=== PATIENT | female | born 1960 | race Caucasian/White ===

== ENCOUNTER 2020-02-06 16:54 | Emergency (ER) | payer MEDICAID, SELFPAY ==
[2020-02-06 16:55] VITALS: BP 129/79; PULSE 85; RESP 17; TEMP 36.8; O2SAT 100; BMI 43.4
--- NOTE | 2020-02-06 16:59 | CT_ITS ---
PROCEDURE: CT ABDOMEN PELVIS WO CON CLINICAL INDICATION: right flank pain COMPARISON: No exams were available for comparison TECHNIQUE: Axial images obtained with sagittal and coronal reformats. All CT scans at the facility use one or more dose reduction, viz: automated exposure control, ma/kV adjustment per patient size (including targeted exams where dose is matched to indication, i.e. head), or iterative reconstruction technique. FINDINGS: LOWER THORAX: No acute finding ABDOMEN & PELVIS: Small hiatal hernia. There has been a prior cholecystectomy. The liver, spleen, adrenal glands, pancreas, and kidneys have an unremarkable appearance. No renal or ureteral calculi. No intestinal obstruction or free air. There is a small umbilical hernia which contains fat. No evidence of appendicitis. The cecum is midline with the appendix slightly toward the left. No evidence of diverticulitis. There are post hysterectomy changes. Scattered small nodes are present in the mesenteries. There is under distention of the urinary bladder. The bladder wall slightly thickened which may be due to the underdistention. There is mild wedging involving L3 which is age indeterminate with mild retropulsion of the posterior inferior aspect of L3. There is loss of the height of L3 of approximately 40 percent. IMPRESSION: 1. No acute abdominal or pelvic findings. 2. Wedge compression fracture of L3 age indeterminate. MRI may further evaluate if clinically desired Dictated by: Louie Riley MD 02/06/2020 19:51 Louie Riley MD in [place] 02/06/2020 19:51
[2020-02-06 17:16] LABS: Microscopic, Urine URINE MICROSCOPIC (MICROSCOPIC)
[2020-02-06 17:22] LABS: Chloride 103 mmol/L (98-107); Potassium 3.9 mmoL/L (3.5-5.1); Sodium 142 mmol/L (136-145)
[2020-02-06 17:24] LABS: Amylase 133 U/L (30-110)
[2020-02-06 17:25] LABS: Alanine Aminotransferase 16 U/L (12-78); Albumin Level 4.3 g/dl (3.5-5.0); Albumin/Globulin Ratio 1.2 (1.1-1.8); Alkaline Phosphatase 66 U/L (38-126); Anion Gap 14.9 mEq/L (5-15); Appearance,Urine CLEAR (Clear); Aspartate Amino Transferase 28 U/L (14-36); Bilirubin,Total 0.5 mg/dl (0.2-1.3); Bilirubin,Urine Negative (Negative); Blood Urea Nitrogen 18 mg/dl (7-17); Blood, Urine TRACE-I (Negative); Calcium 8.7 mg/dl (8.4-10.2); Carbon Dioxide 28 mmol/L (22.0-30.0); Color,Urine YELLOW (Yellow); Creatinine Clearance Estimated 47 mL/min (50-200); Estimated Glomerular Filt Rate 57 ml/min (>60); GFR (African American) 69 ML/MIN (>60); Globulin 3.6 g/dL (1.3-3.2); Glucose 100 mg/dl (74-100); Glucose,Urine (UA) Negative (Negative); Ketones,Urine Negative (Negative); Leukocyte Esterase,Urine Negative (Negative); Lipase 142 U/L (23-300); Nitrate,Urine Negative (Negative); PH,Urine 5.5 (5.0-8.5); Protein,Urine Negative (Negative); Total Protein,Serum 7.9 g/dl (6.3-8.2); Urobilinogen,Urine 0.2 EU/dl (0.2)
[2020-02-06 17:26] LABS: Basophils # 0.1 K/mm3 (0-0.2); Basophils % 0.8 % (0.1-2.0); Eosinophils # 0.5 K/mm3 (0.0-0.4); Eosinophils % 4.6 % (0.1-12.0); Hematocrit 38.6 % (37.0-47.0); Hemoglobin 12.8 g/dL (12.2-16.2); Lymphocytes # 3.7 K/mm3 (0.7-4.5); Lymphocytes % 35.5 % (10-50); Mean Corpuscular HGB Conc 33.1 g/dL (31.8-35.4); Mean Corpuscular Hemoglobin 32.3 pg (27.0-31.2); Mean Corpuscular Volume 97.4 fl (81-99); Mean Platelet Volume 8.7 fl (7.4-10.4); Monocytes # 0.5 K/mm3 (0.1-1.0); Monocytes % 4.6 % (1.7-9.3); Neutrophils # 5.6 K/mm3 (1.8-7.8); Neutrophils % 54.5 % (37.0-80.0); Platelet Count 203 K/mm3 (142-424); Red Blood Count 3.96 M/mm3 (4.20-5.40); White Blood Count 10.3 K/mm3 (4.8-10.8)
[2020-02-06 17:39] LABS: RBC,Urine Occasional #/hpf (0-3); Squamous Epithelial Cell,Urine Occasional #/hpf (0-5)
--- NOTE | 2020-02-06 18:28 | HMH.EDGENADL ---
ED Disposition Clinical Impression: Right flank pain Vomiting Qualifiers: Vomiting type: unspecified Vomiting Intractability: non-intractable Nausea presence: with nausea Qualified Code(s): R11.2 - Nausea with vomiting, unspecified Disposition: Home, Self-Care Condition on Discharge: Good Instructions: DI for Flank Pain Additional Instructions: Ibuprofen, [id number], for pain. Zofran as needed for vomiting. You are being provided with a list of physicians available for follow-up of your condition. Please call a physician on this list to arrange a follow-up appointment as soon as possible. Prescriptions: Ondansetron [Zofran 4mg ODT] 4 mg PO TIDP PRN #10 tab.rapdis PRN Reason: Nausea And Vomiting Transmission Status: Received by [id number] Referrals: PCP,No [Primary Care Provider] - - Critical Care Critical Care Time: No Attestation: On 02/06/20, the high probability of a clinically significant, sudden or life threatening deterioration of the following system(s) required my full and direct attention, intervention and personal management. The time I documented below is in addition to time spent performing reported procedures but includes the following listed in this critical care notation. Medical Decision Making - Jeffery Inquiry Pt receiving controlled substance: No Vital Signs: 02/06/20 16:55 02/06/20 19:20 Temperature 98.2 F 98.6 F Temperature Source Oral Oral Pulse Rate 73 Pulse Rate [Right Radial] 85 Respiratory Rate 17 18 Blood Pressure 116/76 Blood Pressure [Right Arm] 129/79 Blood Pressure Mean [Right Arm] 95 Blood Pressure Source Automatic Cuff Blood Pressure Position Sitting 02 Sat by Pulse Oximetry 100 Oxygen Delivery Method Room Air - Lab Data Lab results reviewed: Yes: I reviewed the patient's lab results. Lab Results 02/06/20 17:10: Urine Color Yellow, Urine Appearance Clear, Urine pH 5.5, Ur Specific [place] 1.010, Urine Protein Negative, Urine Glucose (UA) Negative, Urine Ketones Negative, Urine Blood Trace-i, Urine Nitrate Negative, Urine Bilirubin Negative, Urine Urobilinogen 0.2, Ur Leukocyte Esterase Negative, Urine RBC Occasional, Urine WBC None, Ur Squamous Epith Cells Occasional, Urine Bacteria None 02/06/20 17:10: WBC 10.3, RBC 3.96 L, Hgb 12.8, Hct 38.6, MCV 97.4, MCH 32.3 H, MCHC 33.1, RDW 14.0, Plt Count 203, MPV 8.7, Neut % (Auto) 54.5, Lymph % (Auto) 35.5, [place] % (Auto) 4.6, Eos % (Auto) 4.6, Baso % (Auto) 0.8, Neut # (Auto) 5.6, Lymph # (Auto) 3.7, [place] # (Auto) 0.5, Eos # (Auto) 0.5 H, Baso # (Auto) 0.1 02/06/20 17:10: Sodium 142, Potassium 3.9, Chloride 103, Carbon Dioxide 28, Anion Gap 14.9, BUN 18 H, Creatinine 1.00, Estimated Creat Clear 47, Estimated GFR 57 L, Est GFR ( Amer) 69, Glucose 100, Calcium 8.7, Total Bilirubin 0.5, AST 28, ALT 16, Alkaline Phosphatase 66, Total Protein 7.9, Albumin 4.3, Globulin 3.6 H, Albumin/Globulin Ratio 1.2, Amylase 133 H, Lipase 142 Result diagrams: 02/06/20 17:10 02/06/20 17:10 Orders (Tests/Meds): ED MEDICATIONS Discontinued Medications Generic Name Dose Route Start Last Admin Trade Name Jordy PRN Reason Stop Dose Admin Sodium Chloride 1,000 mls @ 999 mls/hr 02/06/20 17:00 02/06/20 17:01 Sod Chlor 0.9% 1000ml Bag IV 02/06/20 18:00 999 mls/hr .Q1H1M CHIRAG Administration Ketorolac Tromethamine 30 mg 02/06/20 16:59 02/06/20 17:01 Toradol 30mg/Ml Vial IV 02/06/20 17:00 30 mg ONCE ONE Administration Ondansetron HCl 4 mg 02/06/20 16:59 02/06/20 17:01 Zofran 4mg/2ml Vial IV 02/06/20 17:00 4 mg ONCE ONE Administration ORDERS Category Date Time Status CT abdomen pelvis wo con Stat Cat Scan 02/06/20 16:59 Taken - CT Data CT Scan: Abdomen, Pelvis Time Received: 18:28 ([facility] fax) ED CT Reviewed: Yes: I have viewed the radiologist's interpretation Findings Narrative: No calcified renal or ureteral stone. No hydronephrosis. Bladder wall thi
[2020-02-06 19:20] VITALS: BP 116/76; PULSE 73; RESP 18; TEMP 37; O2SAT 96
== END 2020-02-06 19:20 | disposition home or self-care (01) ==
PROVIDERS: Emergency Provider Emergency Medicine
DX: R11.2 Nausea with vomiting, unspecified (principal); R10.31 Right lower quadrant pain
CPT/HCPCS: 74176; 80053; 81001; 82150; 83690; 85025; 96365; 96374; 96375; 99283; J2405

== ENCOUNTER 2020-12-11 15:07 | Emergency (ER) | payer MEDICAID, SELFPAY ==
[2020-12-11 15:02] VITALS: BP 133/76; PULSE 80; RESP 16; TEMP 37.1; O2SAT 95; BMI 53.1
[2020-12-11 15:35] LABS: Microscopic, Urine URINE MICROSCOPIC (MICROSCOPIC)
[2020-12-11 15:38] LABS: Appearance,Urine CLOUDY (Clear); Blood, Urine Negative (Negative); Color,Urine YELLOW (Yellow); Glucose,Urine (UA) TRACE (Negative); Ketones,Urine TRACE (Negative); Leukocyte Esterase,Urine TRACE (Negative); Nitrate,Urine Negative (Negative); Protein,Urine TRACE (Negative); Specific Gravity, Urine >= 1.030 (1.005-1.030)
[2020-12-11 15:53] LABS: Bilirubin,Urine 1+ (Negative)
--- NOTE | 2020-12-11 16:08 | HMH.EDGENADL ---
ED Disposition Clinical Impression: Upper abdominal pain, Right flank pain, Urinary frequency, Dysuria Disposition: Home, Self-Care Condition on Discharge: Good Instructions: DI for Dysuria -- Adult, DI for Flank Pain, DI for Abdominal Pain-Adult Additional Instructions: Tylenol or ibuprofen for pain. Follow-up your urine culture results from your primary care provider within 2 to 3 days. Additional instructions for ABDOMINAL PAIN: See your physician as soon as possible for further evaluation. Return immediately if worsening abdominal pain, vomiting, shortness of breath, fever, vomiting of blood or abdominal distention. Referrals: Provider,Referral, [Primary Care Provider] - - Critical Care Critical Care Time: No Attestation: On 12/11/20, the high probability of a clinically significant, sudden or life threatening deterioration of the following system(s) required my full and direct attention, intervention and personal management. The time I documented below is in addition to time spent performing reported procedures but includes the following listed in this critical care notation. Medical Decision Making - Medical Records Medical records reviewed: Yes: I reviewed the patient's medical records. MR Comment: Reviewed prior emergency department visit on 02/06/2020, seen by me. Complaint was right flank pain. Had a negative work-up that included urine analysis and CT scan abdomen and pelvis. - Jeffery Inquiry Pt receiving controlled substance: No Vital Signs: 12/11/20 15:02 Temperature 98.8 F Temperature Source Oral Pulse Rate [Right] 80 Respiratory Rate 16 Blood Pressure [Right Arm] 133/76 Blood Pressure Mean [Right Arm] 95 02 Sat by Pulse Oximetry 95 Oxygen Delivery Method Room Air - Lab Data Lab Results 12/11/20 15:00: Urine Color Yellow, Urine Appearance Cloudy, Urine pH 6.0, Ur Specific [place] >= 1.030, Urine Protein Trace, Urine Glucose (UA) Trace, Urine Ketones Trace, Urine Blood Negative, Urine Nitrate Negative, Urine Bilirubin 1+ A, Urine Urobilinogen 4.0, Ur Leukocyte Esterase Trace, Urine RBC None, Urine WBC 3-5, Ur Squamous Epith Cells 3-5, Urine Bacteria None 12/11/20 15:15: WBC 10.3, RBC 4.15 L, Hgb 12.6, Hct 38.1, MCV 91.9, MCH 30.3, MCHC 32.9, RDW 14.3, Plt Count 283, MPV 8.5, Neut % (Auto) 63.1, Lymph % (Auto) 28.4, [place] % (Auto) 3.9, Eos % (Auto) 3.9, Baso % (Auto) 0.6, Neut # (Auto) 6.5, Lymph # (Auto) 2.9, [place] # (Auto) 0.4, Eos # (Auto) 0.4, Baso # (Auto) 0.1 12/11/20 15:15: Sodium 142, Potassium 4.0, Chloride 102, Carbon Dioxide 31 H, Anion Gap 13.0, BUN 13, Creatinine 1.00, Estimated Creat Clear 46, Estimated GFR 57 L, Est GFR ( Amer) 69, Glucose 98, Calcium 8.7, Total Bilirubin 0.7, AST 27, ALT 13, Alkaline Phosphatase 77, Total Protein 7.9, Albumin 4.4, Globulin 3.5 H, Albumin/Globulin Ratio 1.3, Lipase 70 Result diagrams: 12/11/20 15:15 12/11/20 15:15 Orders (Tests/Meds): ED MEDICATIONS Discontinued Medications Generic Name Dose Route Start Last Admin Trade Name Freq PRN Reason Stop Dose Admin Ketorolac Tromethamine 30 mg 12/11/20 16:22 12/11/20 16:31 Ketorolac 30mg/Ml Vial IV 12/11/20 16:23 30 mg ONCE ONE Administration ORDERS Category Date Time Status Urine Culture Stat Micro 12/11/20 16:59 Ordered - CT Data CT Scan: Abdomen, Pelvis Time Received: 16:[address] Reviewed: Yes: I have viewed the radiologist's interpretation Findings Narrative: PROCEDURE INFORMATION: Exam: CT Abdomen And Pelvis Without Contrast Exam date and time: 12/11/2020 4:14 PM Age: 60 years old Clinical indication: Abdominal pain; Flank; Right; Prior surgery; Additional info: Flank pain, urinary trouble TECHNIQUE: Imaging protocol: Computed tomography of the abdomen and pelvis without contrast. Radiation optimization: All CT scans at this facility use at least one of these dose optimization techniques: automated exposure control; mA and/o
--- NOTE | 2020-12-11 16:14 | CT_ITS ---
PROCEDURE INFORMATION: Exam: CT Abdomen And Pelvis Without Contrast Exam date and time: 12/11/2020 4:14 PM Age: 60 years old Clinical indication: Abdominal pain; Flank; Right; Prior surgery; Additional info: Flank pain, urinary trouble TECHNIQUE: Imaging protocol: Computed tomography of the abdomen and pelvis without contrast. Radiation optimization: All CT scans at this facility use at least one of these dose optimization techniques: automated exposure control; mA and/or kV adjustment per patient size (includes targeted exams where dose is matched to clinical indication); or iterative reconstruction. COMPARISON: CT ABDOMEN PELVIS WO CON 02/06/2020 5:19 PM FINDINGS: Mediastinal space: A moderate hiatal hernia is present. Liver: Normal. No mass. Gallbladder and bile ducts: There has been a cholecystectomy. Pancreas: Normal. No ductal dilation. Spleen: Normal. No splenomegaly. Adrenal glands: Normal. No mass. Kidneys and ureters: No renal calcifications or obstructive uropathy. Stomach and bowel: Unremarkable. No obstruction. No mucosal thickening. Appendix: No evidence of appendicitis. Intraperitoneal space: Normal. No significant fluid collection. Vasculature: The vasculature demonstrates diffuse mild atherosclerotic calcification. Lymph nodes: Unremarkable. No enlarged lymph nodes. Urinary bladder: Unremarkable as visualized. Bones/joints: Compression deformity of L3 is present, age is indeterminate. The lumbar spine demonstrates moderate degenerative changes at multiple levels. Soft tissues: Soft tissues are normal. IMPRESSION: 1. No renal calcifications or obstructive uropathy. 2. A moderate hiatal hernia is present. 3. Compression deformity of L3 is present, age is indeterminate.
--- NOTE | 2020-12-11 16:20 | PC.NURSE ---
Pt to CT scanner at this time.
[2020-12-11 16:22] LABS: Basophils # 0.1 K/mm3 (0-0.2); Basophils % 0.6 % (0.1-2.0); Eosinophils # 0.4 K/mm3 (0.0-0.4); Eosinophils % 3.9 % (0.1-12.0); Hematocrit 38.1 % (37.0-47.0); Hemoglobin 12.6 g/dL (12.2-16.2); Lymphocytes # 2.9 K/mm3 (0.7-4.5); Lymphocytes % 28.4 % (10-50); Mean Corpuscular HGB Conc 32.9 g/dL (31.8-35.4); Mean Corpuscular Hemoglobin 30.3 pg (27.0-31.2); Mean Corpuscular Volume 91.9 fl (81-99); Mean Platelet Volume 8.5 fl (7.4-10.4); Monocytes # 0.4 K/mm3 (0.1-1.0); Monocytes % 3.9 % (1.7-9.3); Neutrophils # 6.5 K/mm3 (1.8-7.8); Neutrophils % 63.1 % (37.0-80.0); Platelet Count 283 K/mm3 (142-424); Red Blood Count 4.15 M/mm3 (4.20-5.40); Red Cell Distribution Width 14.3 % (11.5-17.5); White Blood Count 10.3 K/mm3 (4.8-10.8)
[2020-12-11 16:24] LABS: Alanine Aminotransferase 13 U/L (12-78); Albumin Level 4.4 g/dl (3.5-5.0); Albumin/Globulin Ratio 1.3 (1.1-1.8); Alkaline Phosphatase 77 U/L (38-126); Aspartate Amino Transferase 27 U/L (14-36); Bilirubin,Total 0.7 mg/dl (0.2-1.3); Blood Urea Nitrogen 13 mg/dl (7-17); Calcium 8.7 mg/dl (8.4-10.2); Carbon Dioxide 31 mmol/L (22.0-30.0); Chloride 102 mmol/L (98-107); Creatinine Clearance Estimated 46 mL/min (50-200); Estimated Glomerular Filt Rate 57 ml/min (>60); GFR (African American) 69 ML/MIN (>60); Globulin 3.5 g/dL (1.3-3.2); Glucose 98 mg/dl (74-100); Lipase 70 U/L (23-300); Sodium 142 mmol/L (136-145); Total Protein,Serum 7.9 g/dl (6.3-8.2)
[2020-12-11 16:33] VITALS: PULSE 70; O2SAT 93
[2020-12-11 16:34] VITALS: BP 139/60; PULSE 57; O2SAT 94
[2020-12-11 16:45] VITALS: PULSE 77; O2SAT 92
[2020-12-11 17:00] VITALS: BP 127/103; PULSE 66; O2SAT 92
[2020-12-11 17:36] VITALS: BP 145/67; PULSE 77; RESP 19; TEMP 37.1; O2SAT 94
== END 2020-12-11 17:50 | disposition home or self-care (01) ==
PROVIDERS: Emergency Provider Emergency Medicine
DX: R30.0 Dysuria (principal); R35.0 Frequency of micturition
CPT/HCPCS: 74176; 80053; 81001; 83690; 85025; 87086; 96374; 99283

== ENCOUNTER 2021-01-03 16:50 | Emergency (ER) | payer MEDICAID, SELFPAY ==
[2021-01-03 16:50] VITALS: BP 138/78; RESP 18; TEMP 37.5; O2SAT 93; BMI 43.2
--- NOTE | 2021-01-03 17:16 | HMH.EDANIB ---
ED Disposition Clinical Impression: Insect bite Disposition: Home, Self-Care Condition on Discharge: Good Additional Instructions: Return the emergency department for fever leg swelling or any other concerns within the next 8 hours otherwise follow-up with your primary care physician within the next few days Prescriptions: Ibuprofen [Ibuprofen 400mg Tablet] 400 mg PO Q8HP PRN 5 Days #15 tab PRN Reason: Mild Pain Transmission Status: Pending to [id number] hydrOXYzine pamoate [Vistaril 25mg capsule] 25 mg PO Q8H PRN 5 Days #15 cap PRN Reason: Itching Transmission Status: Pending to [id number] - Critical Care Critical Care Time: No Attestation: On , the high probability of a clinically significant, sudden or life threatening deterioration of the following system(s) required my full and direct attention, intervention and personal management. The time I documented below is in addition to time spent performing reported procedures but includes the following listed in this critical care notation. Medical Decision Making - Medical Records Medical records reviewed: Yes: I reviewed the patient's medical records. - Jeffery Inquiry Pt receiving controlled substance: No Vital Signs: 01/03/21 16:50 Temperature 99.5 F Temperature Source Oral Respiratory Rate 18 Blood Pressure [Right Arm] 138/78 Blood Pressure Mean [Right Arm] 98 Blood Pressure Source [Right Arm] Automatic Cuff 02 Sat by Pulse Oximetry 93 L Oxygen Delivery Method Room Air Medical Decision Narrative: 60-year-old female presents with insect bite to upper leg. There is no evidence of abscess cellulitis necrotizing infection sepsis or any other concerns on history or exam. Though lesion not identified plan to prescribe Vistaril and ibuprofen for pain and itching and discharged home with return precautions Animal Bite HPI - General Chief Complaint: Animal Bite Stated Complaint: spider bite Time Seen by Provider: 01/03/21 16:55 Mode of Arrival: EMS Limitations: No Limitations Description of Symptoms (Recalled from ER Triage Doc. by RN): patient was taking a bath last night and states that she was bit by a spider on posterior aspect of right knee. patient states that the spider resembled a black . patient was worried this afternoon, due to knee pain and wanted to be seen. - History of Present Illness HPI narrative: 60-year-old female presents with insect bite. She says that yesterday she had itching to her posterior right upper leg and her son noticed a black lesion on this leg. She denies any redness warmth or swelling to this area. No fever or chills. No nausea or vomiting. She now cannot find the area that she was concerned about. - Related Data Previous Rx's Medication Instructions Recorded Ondansetron [Zofran 4mg ODT] 4 mg PO TIDP PRN #10 tab.rapdis 02/06/20 Ibuprofen [Ibuprofen 400mg 400 mg PO Q8HP PRN 5 Days #15 tab 01/03/21 Tablet] hydrOXYzine pamoate [Vistaril 25mg 25 mg PO Q8H PRN 5 Days #15 cap 01/03/21 capsule] Allergies Allergy/AdvReac Type Severity Reaction Status Date / Time codeine Allergy Verified 12/11/20 16:11 [facility] History - Hepatitis A Screen Drug use history?: No High risk sexual behaviors?: No History of sexually transmitted infection?: No Currently employed?: No Childcare worker?: No Do you have indoor plumbing?: Yes Do you have electricity?: Yes Attestation statement:: This patient has been screened for Hepatitis A risk factors. Medical History: Denies:: Diabetes Mellitus Type 1, Diabetes Mellitus Type 2 Comment: hysterectomy - Social History Alcohol Intake: never Occupational Status: disabled ROS Obtained: Yes All systems reviewed & no additional complaints - Constitutional Constitutional: Denies body ache, Denies fever(s) - Eyes Eyes: Denies blurry vision - ENT Ears, Nose, Mouth, and Throat: Denies dizziness - Cardiovascular Cardio
--- NOTE | 2021-01-03 17:25 | PC.NURSE ---
Called son, Donald, to advise that pt is being d/c'd and ready for pickup. He stated he will be heading this way.
[2021-01-03 17:36] VITALS: BP 128/79; PULSE 72; RESP 16; TEMP 37.1; O2SAT 98
== END 2021-01-03 17:38 | disposition home or self-care (01) ==
PROVIDERS: Emergency Provider Emergency Medicine
DX: S80.261A Insect bite (nonvenomous), right knee, initial encounter (principal); W57.XXXA Bitten or stung by nonvenomous insect and other nonvenomous arthropods, initial encounter
CPT/HCPCS: 99281

== ENCOUNTER 2021-11-25 15:43 | Emergency (ER) | payer MEDICAID, SELFPAY ==
[2021-11-25 15:42] VITALS: BP 115/66; PULSE 104; RESP 18; TEMP 37.7; O2SAT 95; BMI 37.8
--- NOTE | 2021-11-25 15:44 | HMH.EDLOEX ---
ED Disposition Clinical Impression: Contusion of foot, right Qualifiers: Encounter type: initial encounter Qualified Code(s): S90.31XA - Contusion of right foot, initial encounter Disposition: Home, Self-Care Condition on Discharge: Fair Instructions: Contusion, DI for Contusion Additional Instructions: Mrwz-[id number]-[id number] ibuprofen and/or Tylenol for your pain. Follow-up with your primary care doctor in about 3 to 4 days if you do not feel any better. Return to the emergency department if you feel worse in any way. - Critical Care Critical Care Time: No Attestation: On , the high probability of a clinically significant, sudden or life threatening deterioration of the following system(s) required my full and direct attention, intervention and personal management. The time I documented below is in addition to time spent performing reported procedures but includes the following listed in this critical care notation. Medical Decision Making - Jeffery Inquiry Pt receiving controlled substance: No Vital Signs: 11/25/21 15:42 Temperature 99.9 F H Temperature Source Oral Pulse Rate [Brachial] 104 H Respiratory Rate 18 Blood Pressure [Left Arm] 115/66 Blood Pressure Mean [Left Arm] 82 02 Sat by Pulse Oximetry 95 Oxygen Delivery Method Room Air Orders (Tests/Meds): ORDERS Category Date Time Status Foot XR right minimum 3 views [XR foot RT min 3V] Stat Exams 11/25/21 15:46 Taken - Radiology Data #1 Image(s): Foot/Toes Image Reviewed: Yes I reviewed the patient's radiology image Preliminary Findings: Normal/NAD Lower Extremity Injury HPI - General Stated Complaint: FOOT PAIN Time Seen by Provider: 11/25/21 15:44 Source of Information: EMS - History of Present Illness HPI Narrative: The patient presents to the emergency department by EMS complaining of a right foot injury that happened a few days ago. She states that she tripped over a towel and hurt the top of her medial right foot. Denies any other complaints. - Related Data Previous Rx's Medication Instructions Recorded Ondansetron [Zofran 4mg ODT] 4 mg PO TIDP PRN #10 tab.rapdis 02/06/20 Ibuprofen [Ibuprofen 400mg 400 mg PO Q8HP PRN 5 Days #15 tab 01/03/21 Tablet] hydrOXYzine pamoate [Vistaril 25mg 25 mg PO Q8H PRN 5 Days #15 cap 01/03/21 capsule] Allergies Allergy/AdvReac Type Severity Reaction Status Date / Time codeine Allergy Verified 12/11/20 16:11 [facility] History - Hepatitis A Screen Attestation statement:: This patient has been screened for Hepatitis A risk factors. I have reviewed the patient's past medical history: No Medical History: Denies:: Diabetes Mellitus Type 1, Diabetes Mellitus Type 2 Comment: hysterectomy - Social History Alcohol Intake: never Occupational Status: disabled ROS Obtained: Yes All systems reviewed & no additional complaints Physical Exam - General General appearance: alert, in no apparent distress - Head Head exam: atraumatic, normocephalic, normal inspection - Eye Eye exam: Present: normal appearance, PERRL, EOMI - ENT ENT exam: Present: normal exam, normal oropharynx, mucous membranes moist, normal external ear exam - Neck Neck exam: Present: normal inspection, full ROM, trachea midline. Absent: meningismus, lymphadenopathy - Chest Chest inspection: Present: normal inspection, symmetric chest wall rise. Absent: tenderness - Respiratory Respiratory exam: Present: normal lung sounds bilaterally. Absent: respiratory distress - Cardiovascular Cardiovascular exam: Present: regular rate, normal rhythm. Absent: JVD - Abdominal Exam Abdominal exam: Present: soft, normal bowel sounds. Absent: distention, tenderness, guarding - Extremities Exam Extremities exam: Present: normal inspection, full ROM, tenderness, normal capillary refill, other (There is tenderness to the dorsum of the medial right foot. There is no erythema. There is no ecchymosi
--- NOTE | 2021-11-25 15:45 | PC.NURSE ---
EMS REPORTS BED BUG NOTED TO PT PRIOR TO ARRIVAL. CLOTHES REMOVED, PLACED IN LINEN BAG. PT IN HOSPITAL GOWN
--- NOTE | 2021-11-25 15:46 | XR_ITS ---
FINAL REPORT CLINICAL HISTORY: injury, pt states she fell 2-3 days ago, and that the majority of the pain is on the lateral medial aspect of her foot near the 1st digit. FINDINGS: RIGHT FOOT Three views were obtained. There is no acute fracture or dislocation. There are mild degenerative changes. Calcaneal spurs are identified. Note is made of mild hallux valgus deformity. No soft tissue abnormality is identified. IMPRESSION: Degenerative changes with no acute process. Reviewed, Interpreted and Dictated by Nemesio Mahajan III, MD Transcribed by Althea Mckeon Authenticated and . [facility]
--- NOTE | 2021-11-25 16:05 | PC.NURSE ---
1605 PT TO XR
--- NOTE | 2021-11-25 16:10 | PC.NURSE ---
PT RETURNED FROM XR
--- NOTE | 2021-11-25 16:38 | PC.NURSE ---
UPDATING PT ON XR RESULTS
--- NOTE | 2021-11-25 16:51 | PC.NURSE ---
Pt attempted to call son for a ride home. Stated that he did not answer. Pt is going to try to call him again in a few minutes.
--- NOTE | 2021-11-25 17:03 | PC.NURSE ---
Daughter margarita called to state that she is on her way to clam picker pt.
[2021-11-25 17:36] VITALS: BP 105/51; PULSE 97; RESP 18; TEMP 36.7; O2SAT 99
== END 2021-11-25 17:38 | disposition home or self-care (01) ==
PROVIDERS: Emergency Provider Emergency Medicine
DX: S90.31XA Contusion of right foot, initial encounter (principal); W22.8XXA Striking against or struck by other objects, initial encounter; Z88.6 Allergy status to analgesic agent
CPT/HCPCS: 73630; 99283

== ENCOUNTER 2025-04-08 08:16 | Emergency (ER) | payer MEDICAID, SELFPAY ==
[2025-04-08] VITALS (7 sets, daily range): BP systolic 116–160; BP diastolic 62–101; PULSE 78–131; RESP 16; TEMP 36.6–36.9; O2SAT 94–97; BMI 43.2
--- NOTE | 2025-04-08 08:13 | CT_ITS ---
PROCEDURE INFORMATION: Exam: CT Abdomen And Pelvis With Contrast Exam date and time: 04/08/2025 9:14 AM Age: 64 years old Clinical indication: Nausea and vomiting; Abdominal pain; Generalized; Additional info: Generalized abdominal pain x1 month, n/v TECHNIQUE: Imaging protocol: Computed tomography of the abdomen and pelvis with contrast. Radiation optimization: All CT scans at this facility use at least one of these dose optimization techniques: automated exposure control; mA and/or kV adjustment per patient size (includes targeted exams where dose is matched to clinical indication); or iterative reconstruction. Contrast material: ISOVUE; Contrast volume: 75 ml; Contrast route: IV; COMPARISON: CT ABDOMEN PELVIS WO CON 12/11/2020 4:22 PM FINDINGS: Diaphragm: Moderate hiatal hernia. Liver: Normal. No mass. Gallbladder and biliary ducts: Normal. No calcified stones. No ductal dilation. Pancreas: Normal. No ductal dilation. Spleen: Normal. No splenomegaly. Adrenal glands: Normal. No mass. Kidneys and ureters: Bilateral renal sinus and parenchymal cysts. No hydronephrosis. Stomach and bowel: Moderate colonic stool burden. No bowel obstruction. Appendix: No evidence of appendicitis. Intraperitoneal space: Unremarkable. No free air. No significant fluid collection. Vasculature: Unremarkable. No abdominal aortic aneurysm. Lymph nodes: Unremarkable. No enlarged lymph nodes. Urinary bladder: Unremarkable as visualized. Reproductive: Hysterectomy. Bones/joints: Dextrocurvature of the lumbar spine. Remote L3 compression fracture. Soft tissues: Unremarkable. IMPRESSION: No acute findings. COMMENTS: Consistent with the [place] [employer]'s Incidental Findings Committee white paper (J Am Chaitanya Radiol 2018): Any incidental renal lesion less than 1 cm or classified as too small to characterize, or any incidental cystic renal lesion characterized as simple-appearing, is likely benign. No follow-up imaging is recommended for these lesions per consensus recommendations based on imaging criteria.
--- NOTE | 2025-04-08 08:13 | XR_ITS ---
PROCEDURE INFORMATION: Exam: XR Chest Exam date and time: 04/08/2025 8:51 AM Age: 64 years old Clinical indication: Shortness of breath TECHNIQUE: Imaging protocol: Radiologic exam of the chest. Views: 1 view. COMPARISON: CT ABDOMEN PELVIS WO CON 12/11/2020 4:22 PM FINDINGS: Lungs: Unremarkable. No consolidation. Pleural spaces: Unremarkable. No pleural effusion. No pneumothorax. Heart/Mediastinum: Unremarkable. No cardiomegaly. Bones/joints: Unremarkable. IMPRESSION: No acute findings.
--- NOTE | 2025-04-08 08:15 | ED_ITS ---
Discharge Plan Disposition Patient Disposition: Home, Self-Care Prescriptions Prescriptions: New sulfamethoxazole-trimethoprim [Bactrim] 400-80 mg tablet 1 tab PO BID 7 Days Qty: 14 0RF No Action ondansetron 4 MG tablet,disintegrating 4 mg PO TIDP PRN (Reason: Nausea And Vomiting) Qty: 10 0RF ibuprofen 400 MG tablet 400 mg PO Q8HP PRN (Reason: Mild Pain) 5 Days Qty: 15 0RF hydroxyzine pamoate 25 MG capsule 25 mg PO Q8H PRN (Reason: Itching) 5 Days Qty: 15 0RF Referrals Follow up/Referrals: Provider,Referral, MD [Primary Care Provider, Medical] - See instructions Activity Restrictions/Add. Instructions Additional Instructions/Restrictions: Your CT scan showed evidence of constipation, which could explain your pain. I encourage you to pickup driver MiraLAX [id number] and take 1 capful daily. If you do not have daily bowel movements, increase it to 2 capfuls daily until you have regular bowel movements. I am also prescribing a course of antibiotics for the area of infection to the back of your neck. Take this as prescribed. I am providing you a list of primary care doctors to follow-up with. Contact them to schedule a follow-up appointment. If you develop any new or worsening symptoms, or if you become concerned for your help for any reason, return to the emergency department for evaluation Clinical Impressions Clinical Impression: Cellulitis of neck, Constipation, Abdominal pain, RL (acute kidney injury) Instructions Patient Instructions: DI for Acute Abdominal Pain Print Language Print Language: German Discharge ED Provider: David Skinner General Adult HPI General Chief complaint: Abdominal Pain Stated complaint: ABD pain Time Seen by Provider: 04/08/25 08:17 Mode of Arrival: EMS Source of Information: Patient Description of Symptoms (Recalled from ER Triage Doc. by RN): Patient complaining of lower abdominal pain that she states has been going on for a month, worse when she moves. Also states any time she tries to eat anything she vomits. History of Present Illness HPI narrative: Althea Villatoro is a 64F with a history of hypothyroidism, cleft palate s/p repair, who presents to the emergency department for complaints of 1 month of abdominal pain. Patient states that intermittently she will have lower abdominal pain that is worsened with movements sometimes. She states that over the last month, when she eats, she often times has vomiting, however it has slowed recently. She denies any diarrhea or constipation or bloody stool. She denies any dysuria, hematuria or changes in urinary frequency. She denies any chest pain but states that intermittently she will have some shortness of breath. She denies any tobacco use. She denies any alcohol or recreational drug use. She denies any fevers. She denies any abdominal surgeries. Related Data Previous Rx's ?Medication ?Instructions ?Recorded ondansetron 4 mg disintegrating 4 mg PO TIDP PRN Nause a And 02/06/20 tablet Vomiting ##10 hydroxyzine pamoate 25 mg capsule 25 mg PO Q8H PRN Itc radha 5 days 01/03/21 #15 caps ibuprofen 400 mg tablet 400 mg PO Q8HP PRN Mild Pain 5 01/03/21 days #15 tabs sulfamethoxazole 400 1 tab PO BID 7 days #14 tabs 04/08/25 mg-trimethoprim 80 mg tablet (Bactrim) Allergies Allergy/AdvReac Type Severity Reaction Status Date / Time codeine Allergy Unknown Verified 04/08/25 08:16 allergy reaction [facility] Disclaimer: The information contained in this section may have been updated after the patient was seen, as this information can be updated by other users. Social History Smoking Status: Never smoker alcohol intake: never current occupational status: disabled Travel in the last 8 weeks?: None Have you lived/traveled outside US in past 30 days?: No Contact w/someone who lives/traveled outside US past 30 days?: No Exposure to someone with infectious disease in past 14 days?: No Do you have a fever (greater than 100.4 F or 38 C)?: No Have you tested positive for COVID-19?: No Exposed to someone with COVID-19 in past 14 days?: No Do you have a sore throat?: No Do you have a cough?: No Do you have any weakness?: No Do you have any diarrhea?: No Are you experiencing any unusual bleeding?: No Do you have any muscle aches/pain?: No Do you have any abdominal pain?: No Are you experiencing loss of taste or smell?: No Other Medical History Have you received the Flu Vaccine for this season: No Have you received the Pneumonia Vaccine: No ROS Obtained: Yes Systems reviewed as appropriate & no additional complaints except as documented Physical Exam General General appearance: alert and in no apparent distress Head Head exam: atraumatic Eye Eye exam: Present normal appearance ENT ENT exam: Present normal external ear exam Neck Neck exam: Present full ROM Chest Chest inspection: Present symmetric chest wall rise Respiratory Respiratory exam: Present normal lung sounds bilaterally; Absent respiratory distress, wheezes or stridor Cardiovascular Cardiovascular exam: Present normal rhythm and tachycardia Abdominal Exam Abdominal exam: Present soft, tenderness (Generalized) and guarding (Grimacing but no guarding throughout the entire abdomen); Absent distention, rebound or rigidity Extremities Exam Extremities exam: Present normal inspection Back Exam Back exam: Present normal inspection Neurological Exam Neurological exam: Present alert and oriented X3 Psychiatric Psychiatric exam: Present normal affect Skin Skin exam: Present warm and dry Medical Decision Making Medical Records Screening: Per USPSTF and CDC recommendations, given the prevalence of disease in our region, it is our hospital?s policy to screen for HIV and viral Hepatitis for all patients aged 18 and over and those with ongoing risk factors. Jeffery Inquiry Pt receiving controlled substance: No Vital Signs: 04/08/25 08:09 04/08/25 08:12 04/08/25 08:30 Temperature 98.5 F Temperature Source Oral Pulse Rate 131 H 108 H Pulse Rate [Right Brachial] 121 H Respiratory Rate 16 Blood Pressure 160/101 H Blood Pressure [Right Arm] 160/101 H Blood Pressure Mean [Right Arm] 120 Blood Pressure Source [Right Arm] Automatic Cuff Blood Pressure Position [Right Arm] Sitting 02 Sat by Pulse Oximetry 95 96 95 Oxygen Delivery Method Room Air Room Air Room Air 04/08/25 09:01 04/08/25 09:31 04/08/25 09:46 Temperature Temperature Source Pulse Rate 91 H 85 82 Pulse Rate [Right Brachial] Respiratory Rate Blood Pressure 135/75 127/63 129/62 Blood Pressure [Right Arm] Blood Pressure Mean [Right Arm] Blood Pressure Source [Right Arm] Blood Pressure Position [Right Arm] 02 Sat by Pulse Oximetry 94 L 95 97 Oxygen Delivery Method Room Air Room Air Room Air Lab Data Lab Results 04/08/25 08:13: WBC 16.8 H, RBC 4.20, Hgb 13.0, Hct 40.7, MCV 96.9, MCH 31.0, MCHC 31.9, RDW 12.9, Plt Count 300, MPV 11.2 H, Neut % (Auto) 55.2, Lymph % (Auto) 37.0, [place] % (Auto) 4.4, Eos % (Auto) 2.5, Baso % (Auto) 0.5, Neut # (Auto) 9.3 H, Lymph # (Auto) 6.2 H, [place] # (Auto) 0.7, Eos # (Auto) 0.4, Baso # (Auto) 0.1, Total Counted 100, Neutrophils % (Manual) 50, Lymphocytes % (Manual) 44, Monocytes % (Manual) 3, Eosinophils % (Manual) 2, Basophils % (Manual) 1.0, Platelet Estimate Normal, RBC Morphology Normal, Sodium 141, Potassium 3.8, Chloride 103, Carbon Dioxide 26, Anion Gap 15.8 H, BUN 19 H, Creatinine 1.10 H, Estimated Creat Clear 32, Estimated GFR 50 L, Est GFR ( Amer) 61, Glucose 123 H, Lactate 1.8, Calcium 9.0, Total Bilirubin 0.6, AST 33, ALT 18, Alkaline Phosphatase 68, Troponin I 0.01, C-Reactive Protein 16.6 H, NT-Pro-B Natriuret Pep 202 H, Total Protein 8.1, Albumin 4.3, Globulin 3.8 H, Albumin/Globulin Ratio 1.1, Lipase 114, HCV Ab NICOLE w/Rflx PCR Qn Negative, HIV Ag/Ab Combo Qual Negative 04/08/25 10:05: Urine Color Yellow, Urine Appearance Sl cloudy, Urine pH 5.0, Ur Specific [place] 1.010, Urine Protein Negative, Urine Glucose (UA) Negative, Urine Ketones Negative, Urine Blood Negative, Urine Nitrate Negative, Urine Bilirubin Negative, Urine Urobilinogen 1.0, Ur Leukocyte Esterase Negative, Urine RBC None, Urine WBC Occasional, Ur Squamous Epith Cells 10-20, Urine Bacteria 1+ 04/08/25 08:13 04/08/25 08:13 Orders (Tests/Meds): ED MEDICATIONS Discontinued Medications Generic Name Dose Route Start Last Admin Trade Name Freq PRN Reason Stop Dose Admin Lactated Ringer's 1,000 mls @ 999 mls/hr 04/08/25 08:13 04/08/25 10:29 Lactated Ringer's 1000 Ml Bag IV 04/08/25 09:13 Infused .Q1H1M ONE Infusion Iopamidol 75 ml 04/08/25 09:22 04/08/25 09:23 Iopamidol-370 (76%);100ml Bottle IV 04/08/25 09:23 75 ml ONCE ONE Administration Ketorolac Tromethamine 15 mg 04/08/25 08:13 04/08/25 08:56 Ketorolac 15mg/Ml Vial IV 04/08/25 08:14 15 mg ONCE ONE Administration Ondansetron HCl 4 mg 04/08/25 08:13 04/08/25 08:56 Ondansetron 4mg/2ml Vial IV 04/08/25 08:14 4 mg ONCE ONE Administration Sodium Chloride 10 ml 04/08/25 09:22 04/08/25 09:23 Sodium Chloride 0.9% 10ml Syr (Rad Only) IV 04/08/25 09:23 10 ml ONCE ONE Administration ORDERS Category Date Time Status CT abdomen pelvis w con Stat Cat Scan 04/08/25 08:13 Completed CXR --portable [XR chest portable] Stat Exams 04/08/25 08:13 Completed BNP [NT Pro Brain Natriuretic Pep.] Stat Lab 04/08/25 08:13 Completed CBC w/Auto Diff [Complete Blood Count Auto Diff] Stat Lab 04/08/25 08:13 Completed CMP [Comprehensive Metabolic Panel] Stat Lab 04/08/25 08:13 Completed CRP [C-Reactive Protein] Stat Lab 04/08/25 08:13 Completed HIV Combo Stat Lab 04/08/25 08:13 Completed Hepatitis C Ab Qual. W/ RFX Stat Lab 04/08/25 08:13 Completed Lactic Acid Stat Lab 04/08/25 08:13 Completed Lipase Stat Lab 04/08/25 08:13 Completed Troponin I Q3H Lab 04/08/25 10:58 Received Troponin I Q3H Lab 04/08/25 14:15 Ordered Troponin I Stat Lab 04/08/25 08:13 Completed UA [Urinalysis and Microscopic] Stat Lab 04/08/25 10:05 Completed EKG Request [ECG Request] Stat Y 04/08/25 08:13 Ordered ECG Data Tracing #1: I reviewed this ECG and interpreted as documented below: Sinus tachycardia. No ST elevation or depression. QTc normal at 381. Medical Decision Narrative: Althea Villatoro is a 64F with a history of hypothyroidism, cleft palate s/p repair, who presents to the emergency department for complaints of 1 month of abdominal pain. Patient states that intermittently she will have lower abdominal pain that is worsened with movements sometimes. She states that over the last month, when she eats, she often times has vomiting, however it has slowed recently. She denies any diarrhea or constipation or bloody stool. She denies any dysuria, hematuria or changes in urinary frequency. She denies any chest pain but states that intermittently she will have some shortness of breath. She denies any tobacco use. She denies any alcohol or recreational drug use. She denies any fevers. She denies any abdominal surgeries. On arrival, patient is hypertensive blood pressure 160/101, tachycardic with a heart rate 121, afebrile, oxygen saturation 96% on room air. Physical exam, stated above, revealed a nontoxic-appearing female in no respiratory distress. Cardiopulmonary exam revealed tachycardia but no murmurs or rubs. No wheezing, rales or rhonchi. Abdomen is diffusely tender without guarding or rebound. Abdomen is nondistended and not peritonitic. She has some grimacing with palpation throughout the entire abdomen. Differential diagnosis includes, but is not limited to: Enterocolitis, appendicitis, acute cholecystitis, constipation, diverticulitis, urinary tract infection, AAA, acute pancreatitis, malignancy, pneumonia, ACS, among others. The most morbid conditions were considered and workup was based on these. Workup in the emergency department included: Troponin, urinalysis, BNP, lipase, lactic acid, CMP, CBC with differential, CRP, EKG, chest x-ray, CT abdomen pelvis with contrast. Patient was administered 50 mg of IV Toradol and 4 mg of IV Zofran and was given 1 L lactated ringer. EKG showed sinus tachycardia without ischemic changes. See interpretation above. Lab work shows elevated white blood cell count of 16.8 but no neutrophilia. No anemia. Platelets within normal limits. Electrolytes within normal limits. Very mild elevated anion gap of 15.8, mildly elevated creatinine of 1.1 and BUN of 19, baseline creatinine is 1. Likely represents a very mild RL. Glucose normal at 123. Liver enzymes bili are within normal limits. CRP is mildly elevated at 16.6, NT proBNP mildly evaded 202. Troponin 0.01. Lipase normal at 114. Urinalysis without evidence of infection. Chest x-ray interpreted by me personally. No focal consolidation, no pneumothorax, no widened mediastinum, no enlargement of the cardiac silhouette. Unremarkable chest x-ray. See radiology report for details. CT abdomen pelvis interpreted by me personally. Moderate colonic stool burden but no other acute findings. See radiology report for details. On reassessment, patient remains in stable condition. Heart rate has improved and blood pressure is normal. She overall feels well. She does complain of a small area of redness and swelling to the back of her neck at this time. She likely has a very small abscess versus area of cellulitis versus cyst. Would likely benefit from course of antibiotics. Will prescribe Bactrim 7-day course for her. Also recommending MiraLAX to help with constipation. Will provide list of primary care doctors for her to follow-up with. Return precautions were given. All questions were answered. She demonstrated understanding and was in agreement this plan. She was then discharged from the emergency department in stable condition Critical Care Critical Care Time Critical Care Time: No
[2025-04-08 08:37] LABS: Hematocrit 40.7 % (37.0-47.0); Hemoglobin 13.0 g/dL (12.2-16.2); Immature Granulocytes % 0.4 %; Mean Corpuscular HGB Conc 31.9 g/dL (31.8-35.4); Mean Corpuscular Hemoglobin 31.0 pg (27.0-31.2); Mean Corpuscular Volume 96.9 fl (81-99); Nucleated Red Blood Cells % 0 %; Platelet Count 300 K/mm3 (142-424); Red Blood Count 4.20 M/mm3 (4.20-5.40); Red Cell Distribution Width-SD 46.1 fL; White Blood Count 16.8 K/mm3 (4.8-10.8)
--- NOTE | 2025-04-08 08:42 | ECG_ITS ---
APPROVED REPORT Exam: Resting ECG HR:108 bpm ECG Measurements Heart Rate 108 AXES IN 208 P 40 QRSd 79 QRS 29 QT 317 T 60 QTc 381 Conclusion SINUS TACHYCARDIA ABNORMAL RHYTHM ECG UNCONFIRMED REPORT Sinus tachycardia, no ST elevation or depression. QTc normal at 381 Electronically signed by : SANDOVAL APONTE, 04/08/2025 15:24:06
[2025-04-08 08:51] LABS: Albumin Level 4.3 g/dl (3.5-5.0); Chloride 103 mmol/L (98-107); Potassium 3.8 mmoL/L (3.5-5.1); Sodium 141 mmol/L (136-145)
[2025-04-08 08:53] LABS: Alanine Aminotransferase 18 U/L (12-78); Aspartate Amino Transferase 33 U/L (14-36); Blood Urea Nitrogen 19 mg/dl (7-17); Creatinine Clearance Estimated 32 mL/min (50-200); Creatinine,Serum 1.10 mg/dl (0.52-1.04); Estimated Glomerular Filt Rate 50 ml/min (>60); GFR (African American) 61 ML/MIN (>60)
[2025-04-08 08:54] LABS: Albumin/Globulin Ratio 1.1 (1.1-1.8); Alkaline Phosphatase 68 U/L (38-126); Anion Gap 15.8 mEq/L (5-15); Bilirubin,Total 0.6 mg/dl (0.2-1.3); Calcium 9.0 mg/dl (8.4-10.2); Carbon Dioxide 26 mmol/L (22.0-30.0); Globulin 3.8 g/dL (1.3-3.2); Glucose 123 mg/dl (74-100); Lipase 114 U/L (23-300); Total Protein,Serum 8.1 g/dl (6.3-8.2)
[2025-04-08] MEDS: ONDANSETRON 4MG/2ML VIAL 4 MG IV (08:56)
[2025-04-08] MEDS: KETOROLAC 15MG/ML VIAL 15 MG IV (08:56)
[2025-04-08] MEDS: LACTATED RINGERS 1000ML 1,000 ML 999 ML IV (08:57)
[2025-04-08 09:03] LABS: NT Pro Brain Natriuretic Pep. 202 pg/mL (0-125)
[2025-04-08 09:05] LABS: RBC Morphology Normal; Total Cells Counted 100
[2025-04-08 09:08] LABS: Troponin I 0.01 ng/ml (0.00-0.034)
[2025-04-08] MEDS: IOPAMIDOL-370 (76%);100ML BOTTLE 75 ML IV (09:23)
[2025-04-08] MEDS: SODIUM CHLORIDE 0.9% 10ML SYR (RAD ONLY) 10 ML IV (09:23)
[2025-04-08 09:27] LABS: C-Reactive Protein 16.6 mg/L (0-4)
[2025-04-08 10:11] LABS: Hepatitis C Ab Qual. W/ RFX NEGATIVE (Negative)
[2025-04-08 10:13] LABS: Microscopic, Urine URINE MICROSCOPIC (MICROSCOPIC)
[2025-04-08 10:33] LABS: Bilirubin,Urine Negative (Negative); Color,Urine YELLOW (Yellow); Glucose,Urine (UA) Negative (Negative); Ketones,Urine Negative (Negative); Leukocyte Esterase,Urine Negative (Negative); PH,Urine 5.0 (5.0-8.5); Protein,Urine Negative (Negative); Specific Gravity, Urine 1.010 (1.005-1.030); Urobilinogen,Urine 1.0 EU/dl (0.2)
[2025-04-08 10:59] LABS: Bacteria,Urine 1+ /lpf; WBC,Urine Occasional #/hpf (0-3)
[2025-04-08 11:31] LABS: Troponin I 0.02 ng/ml (0.00-0.034)
--- NOTE | 2025-04-08 12:35 | PC.NURSE ---
Patient's daughter called to check on patient. I advised daughter that patient is here and has been discharged and needs ride home. She states she cannot come to pick her up but is trying to get a hold of her brother to come get her.
--- NOTE | 2025-04-08 12:53 | PC.NURSE ---
Patient asked us to call her sister Emily Huertas at [phone] and ask her to come and get her. Attempted to call, no answer. Left message.
== END 2025-04-08 13:48 | disposition home or self-care (01) ==
PROVIDERS: Emergency Provider Student in an Organized Health Care Education/Training Program
DX: R10.9 Unspecified abdominal pain (principal); K59.00 Constipation, unspecified; N17.9 Acute kidney failure, unspecified
CPT/HCPCS: 71045; 74177; 80053; 81001; 83605; 83690; 83880; 84484; 85007; 85025; 85027; 86140; 86803; 87389; 93005; 96361; 96374; 96375; 99285; J1885; J2405; J7120; Q9967

== ENCOUNTER 2025-05-03 06:33 | Emergency (ER) | payer MEDICAID, SELFPAY ==
[2025-05-03] VITALS (8 sets, daily range): BP systolic 98–148; BP diastolic 44–87; PULSE 81–104; RESP 16–18; TEMP 36.4–36.7; O2SAT 96–98; BMI 37.8
--- NOTE | 2025-05-03 07:00 | PC.NURSE ---
pt provided socks and warm blanket with sheet for comfort.
--- OUTSIDE RECORDS SUMMARY | 2025-05-03 07:03 | XMS_ITS | Encounter Summary ---
Author Organization [place] [address] Care Team Providers Care Assistant Director Of Plant Operations Name Role Phone Velia Ace APRN Primary Care Provider [phone] Crescencio Franco MD Primary Care Provider + [phone] Emily Demarco RN Unavailable Unavailable Encounter Details Date Type Department Care Team (Late st Contact Info) Description 10/07/2020 Orders Only SEP Gastro [facility] [address] [facility] [address] [place] [address] Scot Mejia MD [address] [place] [address] Social History Tobacco Use Types Packs/Day Years Used Date Smoking Tobacco: Never Smokeless Tobacco: Never Alcohol Use Standard Drinks/Week Comments No 0 (1 standard drink = 0.6 oz pur e alcohol) none Overall Financial Resource Strain (CARDIA) Answe r Date Recorded How hard is it for you to pa y for the very basics like food, housing, medical care, and heating? Not hard at all 09/26/2020 PHQ-2 Answer Date Recorded PHQ-2 Total Score 0 08/15/2020 [facility] [place] of Occupat ional Health - Occupational Stress Questionnaire Answer Date Recorded Do you feel stress - tense, restless, nervous, or anxious, or unable to sleep at night because your mind is troubled all the time - these days? Not at all 09/26/2020 Exercise Vital Sign Answer Date Recorde d On average, how many days pe r week do you engage in moderate to strenuous exercise (like a brisk walk)? 7 days 09/26/2020 On average, how many minutes do you engage in exercise at this level? 20 min 09/26/2020 Hunger Vital Sign Answer Date Recorded Within the past 12 months, y ou worried that your food would run out before you got the money to buy more. Never true 09/27/19 21 Within the past 12 months, t he food you bought just didn't last and you didn't have money to get more. Never true 09/26/2020 PRAPARE - Transportation Answer Date Re corded In the past 12 months, has l ack of transportation kept you from medical appointments or from getting medications? Yes 10/2020 In the past 12 months, has l ack of transportation kept you from meetings, work, or from getting things needed for daily living? Yes 09/26/2020 Comments No Sex and Gender Information Value Date Recorded Sex Assigned at Not on file Legal Sex Female 3:21 PM EDT Gender Identity Not on file Sexual Orientation Not on file COVID-19 Exposure Response Date Recorded In the last month, have you been in contact with someone who was confirmed or suspected to have Coronavirus / COVID-19? No / Unsure 09/26/2020 9:08 AM EDT documented as of this encounter Functional Status * Is the person deaf or does he/she have serious difficulty hearing? Answer Date of Assessment Author No 08/15/2020 9:08 AM Darrell Putnam CCMA * Is the person blind or does he/she have serious difficulty seeing even when wearing glasses? Answer Date of Assessment Author No 08/15/2020 9:08 AM Darrell Putnam CCMA * Does this person have serious difficulty walking or climbing stairs? Answer Date of Assessment Author No 08/15/2020 9:08 AM Darrell Putnam CCMA * Does this person have difficulty dressing or bathing? Answer Date of Assessment Author No 08/15/2020 9:08 AM Darrell Putnam CCMA * Because of a physical, mental or emotional condition, does this person have difficulty doing errands alone such as visiting a doctor's office or shopping? Answer Date of Assessment Author No 08/15/2020 9:08 AM EDT Darrell Boone CCMA documented as of this encounter Mental Status * Because of a physical, mental or emotional condition, does this person have serious difficulty concentrating, remembering or making decisions? Answer Entry Date Author No 08/15/2020 9:08 AM EDT Darrell Boone CCMA documented in this encounter Plan of Treatment Not on file documented as of this encounter Goals Goal Patient Goal Type Associated Problems Recent Progress Patient-Stated? Author Maintain a healthy diet, exercise regularly and maintain an ideal body weight General No Alecia Boone CCMA documented as of this encounter Procedures Procedure Name Priority Date/Time Associated Diagnosis Comments [facility] COLONOSCOPY Routine 10/07/2020 1:00 PM EDT documented in this encounter Results * [facility]ED COLONOSCOPY (10/07/2020 1:00 PM EDT) 10/07/2020 1:00 PM EDT Impressions [facility] - 10/07/2020 1:51 PM EDT Solid stool in entire right colon. Plan: Colonoscopy at next available with 2 day prep. it might be worthwhile waiting until Addis is available again since she has failed to prep twice so far. This section is an excerpt of the full report. us Scot Garcia MD GI PROCEDURE ORDERABLES Fi nal Result [facility] [address] [place] [address] documented in this encounter Visit Diagnoses Not on filedocumented in this encounter Additional Health Concerns Infection Onset Date Last Indicated Resolved Time R/O COVID-19 11/07/2024 11/07/2024 11/07/2024 9:13 PM EDT documented as of this encounter Care Teams Assistant Director Of Plant Operations Relationship Specialty Start Date End Date Velia Ace [place] [address] [place] [address] PCP - General Nurse Practitioner-Family 08/15/20 11/12/22 Crescencio Franco MD [address] [place] [address] [place] [address] PCP - General Internal Medicine 11/13/22 Emily Demarco, RN Aircraft Machinist 03/14/24 03/19/24 documented as of this encounter
--- OUTSIDE RECORDS SUMMARY | 2025-05-03 07:03 | XMS_ITS | Encounter Summary ---
Author Organization [place] [address] Care Team Providers Care Fast Food Shift Supervisor Name Role Phone Velia Ace APRN Primary Care Provider [phone] Crescencio Franco MD Primary Care Provider + [phone] Emily Demarco RN Unavailable Unavailable Encounter Details Date Type Department Care Team (Late st Contact Info) Description 01/01/2021 Orders Only SEP Gastro [facility] [address] [facility] [address] [place] [address] Scot Mejia MD [address] [place] [address] Social History Tobacco Use Types Packs/Day Years [...] Date Recorded PHQ-2 Total Score 0 08/15/2020 [facility] [place] of Occupat ional Health - Occupational Stress [...] on file Sexual Orientation Not on file documented as of this encounter Functional Status [...] No 08/15/2020 9:08 AM Darrell Putnam CCMA documented as of this encounter Mental [...] maintain an ideal body weight General No lAecia Boone CCMA documented as of this encounter Procedures Procedure Name Priority Date/Time Associated Diagnosis Comments [facility]ED EGD-COLONOSCOPY Routine 01/01/2021 12:00 PM EDT documented in this encounter Results * [facility] EGD-COLONOSCOPY (01/01/2021 12:00 PM EDT) 01/01/2021 12:0 0 PM EDT Impressions [facility] - 01/01/2021 12:51 PM EDT Plan: Await pathology results Colonoscopy in 1 year. This section is an excerpt of the full report. us Scot Garcia MD GI PROCEDURE ORDERABLES Ed ited Result - Final [facility] [address] [place] [address] documented in this encounter Visit Diagnoses Not on filedocumented in this encounter Additional Health Concerns Infection Onset Date Last Indicated Resolved Time R/O COVID-19 11/07/2024 11/07/2024 11/07/2024 9:13 PM EDT documented as of this encounter Care Teams Fast Food Shift Supervisor Relationship Specialty Start Date End Date Velia Ace APRN [employer] [place] [address] PCP - General Nurse Practitioner-Family 08/15/20 11/12/22 Crescencio Franco MD [facility] [employer] [place] [address] PCP - General Internal Medicine 11/13/22 Emily Demarco, RN Quality Assurance Associate 03/14/24 03/19/24 documented as of this encounter
--- OUTSIDE RECORDS SUMMARY | 2025-05-03 07:03 | XMS_ITS | Encounter Summary ---
Author Organization [place] [address] Care Team Providers Care Petroleum Supply Specialist Name Role Phone Velia Ace APRN Primary Care Provider Crescencio Franco MD Primary Care Provider + [phone] Emily Demarco RN Unavailable Unavailable Encounter Details Date Type Department Care Team (Late st Contact Info) Description 09/18/2020 Lab Requisition [facility] [place] [address] Scot Mejia MD [address] [place], [place] [id number] Other dysphagia; Personal history of colonic polyps; Diaphragmatic hernia without obstruction or gangrene; Other esophagitis without bleeding Social History Tobacco Use Types Packs/Day Years Used Date Smoking Tobacco: Never Smokeless Tobacco: Never Alcohol Use Standard Drinks/Week Comments No 0 (1 standard drink = 0.6 oz pur e alcohol) none PHQ-2 Answer Date Recorded PHQ-2 Total Score 0 08/15/2020 Comments No Sex and Gender Information Value Date Recorded Sex Assigned at Not on file Legal Sex Female 3:21 PM EDT Gender Identity Not on file Sexual Orientation Not on file COVID-19 Exposure Response Date Recorded In the last month, have you been in contact with someone who was confirmed or suspected to have Coronavirus / COVID-19? No / Unsure 09/10/2020 12:46 PM EDT documented as of this encounter Functional Status * Is the person deaf or does he/she have serious difficulty hearing? Answer Date of Assessment Author No 08/15/2020 9:08 AM EDDarrell Casillas CCMA * Is the person blind or does he/she have serious difficulty seeing even when wearing glasses? Answer Date of Assessment Author No 08/15/2020 9:08 AM EDT Darrell Boone CCMA * Does this person have serious difficulty walking or climbing stairs? Answer Date of Assessment Author No 08/15/2020 9:08 AM EDT Darrell Boone CCMA * Does this person have difficulty dressing or bathing? Answer Date of Assessment Author No 08/15/2020 9:08 AM EDT Darrell Boone CCMA * Because of a physical, mental or emotional condition, does this person have difficulty doing errands alone such as visiting a doctor's office or shopping? Answer Date of Assessment Author No 08/15/2020 9:08 AM EDDarrell Casillas CCMA documented as of this encounter Mental Status * Because of a physical, mental or emotional condition, does this person have serious difficulty concentrating, remembering or making decisions? Answer Entry Date Author No 08/15/2020 9:08 AM Darrell Putnam CCMA documented in this encounter Plan of Treatment Not on file documented as of this encounter Goals Goal Patient Goal Type Associated Problems Recent Progress Patient-Stated? Author Maintain a healthy diet, exercise regularly and maintain an ideal body weight General No Alecia Boone CCMA documented as of this encounter Procedures Procedure Name Priority Date/Time Associated Diagnosis Comments PATHOLOGY TISSUE REQUEST Routine 09/18/2020 1:00 AM EDT Other dysphagia Personal history of colonic polyps Diaphragmatic hernia without obstruction or gangrene Other esophagitis without bleeding documented in this encounter Results * PATHOLOGY TISSUE REQUEST (09/18/2020 1:00 AM EDT) CASE REPORT Surgical Pathology Case: [id number] Authorizing Provider: Scot Mejia MD Collected: 09/18/2020 0100 Ordering Location[facility] Received: 09/18/2020 1524 Pathologist: Jessica Fulton MD Specimen: Gastroesophageal Junction 09/19/2020 9:27 AM EDT [facility] CLINICAL HISTORY Dysphagia, esophageal phase; personal history of colon polyps. 09/19/2020 9:27 AM EDT [facility] FINAL DIAGNOSIS Gastroesophageal junction, biopsy: - Squamocolumnar junctional mucosa with mild chronic inflammation and reflux changes. - No intestinal metaplasia. 09/19/2020 9:27 AM EDT [facility] at 0927 EDT MICROSCOPIC DESCRIPTION Microscopic examination is performed and the findings corroborate the diagnosis. 09/19/2020 9:27 AM EDT [facility] EMBEDDED IMAGES 09/19/2020 9:27 AM EDT [facility] GROSS DESCRIPTION Received in formalin labeled with the patient s name and G E junction biopsy are four fragments of hill tissue ranging from 0.2 to 0.3 cm in greatest dimension. Entirely submitted in one cassette. /ZN 09/19/2020 9:27 AM EDT [facility] Tissue CARDIOESOPHAGEAL JUNCTION STRUCTURE / Unknown 09/18/2020 1:00 AM EDT 09/18/2020 3:24 PM EDT us Scot Garcia MD PATHOLOGY ORDERABLES Final Result [address] [address] documented in this encounter Visit Diagnoses Diagnosis Other dysphagia Personal history of colonic polyps Diaphragmatic hernia without obstruction or gangrene Diaphragmatic hernia without mention of obstruction or gangrene Other esophagitis without bleeding documented in this encounter Additional Health Concerns Infection Onset Date Last Indicated Resolved Time R/O COVID-19 11/07/2024 11/07/2024 11/07/2024 9:13 PM EDT documented as of this encounter Care Teams Petroleum Supply Specialist Relationship Specialty Start Date End Date Velia [place] [place] [address] PCP - General Nurse Practitioner-Family 08/15/20 11/12/22 Crescencio Franco MD [address] [place] [address] [place] [address] PCP - General Internal Medicine 11/13/22 Emily Demarco, RN Instructor Apparel Manufacture 03/14/24 03/19/24 documented as of this encounter
--- OUTSIDE RECORDS SUMMARY | 2025-05-03 07:03 | XMS_ITS | Encounter Summary ---
Author Organization [place] [address] Care Team Providers Care Inspector Rag Sorting Name Role Phone Velia Ace APRN Primary Care Provider [phone] Crescencio Franco MD Primary Care Provider + [phone] Emily Demarco RN Unavailable Unavailable Encounter Details Date Type Department Care Team (Late st Contact Info) Description 01/01/2021 Lab Requisition [facility] [place] [address] Scot Mejia MD [address] [place] [address] Dysphagia, unspecified; Esophagitis, unspecified without bleeding; Personal history of colonic polyps; Diaphragmatic hernia without obstruction or gangrene; Polyp of colon Social History Tobacco Use Types Packs/Day Years [...] Date Recorded PHQ-2 Total Score 0 08/15/2020 [facility] of Occupat ional Health - Occupational Stress [...] maintain an ideal body weight General No PaoloJohnAleciaALDO Haas documented as of this encounter Procedures Procedure Name Priority Date/Time Associated Diagnosis Comments PATHOLOGY TISSUE REQUEST Routine 01/01/2021 12:51 PM EDT Dysphagia, unspecified Esophagitis, unspecified without bleeding Personal history of colonic polyps Diaphragmatic hernia without obstruction or gangrene Polyp of colon documented in this encounter Results * PATHOLOGY TISSUE REQUEST (01/01/2021 12:51 PM EDT) CASE REPORT Surgical Pathology Case: [id number] Authorizing Provider: Scot Mejia MD Collected: 01/01/2021 1251 Ordering [facility] Received: 01/02/2021 0733 Pathologist: Miguel Contreras MD Specimen: Large Intestine, Right/Ascendin g Colon 01/02/2021 1:36 PM EDT [facility] CLINICAL H[facility] Dysphagia; esophagitis; personal history colon polyps 01/02/2021 1:36 PM EDT [facility] FINAL DIAGNOSIS Colon, ascending, polyp, biopsy: - Tubular adenoma. 01/02/2021 1:36 PM EDT [facility] at 1336 EDT GROSS DESCRIPTION Received in formalin labeled with the patient's name and ascending colon polyp is a 0.4 cm in greatest dimension hill-white tissue fragment which is submitted in toto in one cassette. 01/02/2021 1:36 PM EDT [facility] MICROSCOPIC DESCRIPTION Microscopic examination is performed and the findings corroborate the diagnosis 01/02/2021 1:36 PM EDT [facility] EMBEDDED IMAGES 01/02/2021 1:36 PM EDT [facility] Tissue ASCENDING COLON STRUCTURE / Unknown 01/01/2021 12:51 PM EDT 01/02/2021 7:33 AM EDT Scot Garcia MD PATHOLOGY ORDERABLES Final Result [facility] [address] [place] [address] documented in this encounter Visit Diagnoses Diagnosis Dysphagia, unspecified Esophagitis, unspecified without bleeding Personal history of colonic polyps Diaphragmatic hernia without obstruction or gangrene Diaphragmatic hernia without mention of obstruction or gangrene Polyp of colon Benign neoplasm of colon documented in this encounter Additional Health Concerns Infection Onset Date Last Indicated Resolved Time R/O COVID-19 11/07/2024 11/07/2024 11/07/2024 9:13 PM EDT documented as of this encounter Care Teams Inspector Rag Sorting Relationship Specialty Start Date End Date Velia Ace APRN [employer] [facility] [place] [address] PCP - General Nurse Practitioner-Family 08/15/20 11/12/22 Crescencio Franco MD [address] [place] [address] PCP - General Internal Medicine 11/13/22 Emily Demarco, RN Venue Coordinator 03/14/24 03/19/24 documented as of this encounter
--- OUTSIDE RECORDS SUMMARY | 2025-05-03 07:04 | XMS_ITS | Encounter Summary ---
Author Organization [place] [address] Care Team Providers Care Credit Checker Name Role Phone Crescencio Franco MD Primary Care Provider [phone] Reason for Visit * Reason Onset Date Comments Central Patient Navigator Outreach 03/28/2025 MAMMO Encounter Details Date Type Department Care Team (Late st Contact Info) Description 03/28/2025 Patient Outreach [facility] [address] [place] [address] Crescencio Franco MD [address] [place] [address] Central Patient Navigator Outreach (MAMMO) Social History Tobacco Use Types Packs/Day Years Used Date Smoking Tobacco: Never Smokeless Tobacco: Never Alcohol Use Standard Drinks/Week Comments No 0 (1 standard drink = 0.6 oz pur e alcohol) none [facility] Utilities Answer Date Recorded In the past 12 months has [employer] electric, gas, oil, or water company threatened to shut off services in your home? No 03/12/2024 Overall Financial Resource Strain (CARDIA) Answe r Date Recorded How hard is it for you to pa y for the very basics like food, housing, medical care, and heating? Not very hard 03/12/2024 PHQ-2 Answer Date Recorded PHQ-2 Total Score 0 03/12/2024 [facility] of Occupat ional Health - Occupational Stress Questionnaire Answer Date Recorded Do you feel stress - tense, restless, nervous, or anxious, or unable to sleep at night because your mind is troubled all the time - these days? Rather much 03/12/2024 Exercise Vital Sign Answer Date Recorde d On average, how many days pe r week do you engage in moderate to strenuous exercise (like a brisk walk)? 0 days 03/12/2024 On average, how many minutes do you engage in exercise at this level? 0 min 03/12/2024 Hunger Vital Sign Answer Date Recorded Within the past 12 months, y ou worried that your food would run out before you got the money to buy more. Never true 03/12/20 24 Within the past 12 months, t he food you bought just didn't last and you didn't have money to get more. Never true 03/12/2024 PRAPARE - Transportation Answer Date Re corded In the past 12 months, has l ack of transportation kept you from medical appointments or from getting medications? Yes 10/2020 In the past 12 months, has l ack of transportation kept you from meetings, work, or from getting things needed for daily living? Yes 09/26/2020 [facility] IP Transportation Answer D ate Recorded In the past 12 months, has l ack of reliable transportation kept you from medical appointments, meetings, work or from getting things needed for daily living? No 03/12/2024 Comments No Sex and Gender Information Value Date Recorded Sex Assigned at Not on file Legal Sex Female 3:21 PM EDT Gender Identity Not on file Sexual Orientation Not on file documented as of this encounter Functional Status * Is the person deaf or does he/she have serious difficulty hearing? Answer Date of Assessment Author No 06/09/2022 9:45 AM Darrell Harrington CCMA * Is the person blind or does he/she have serious difficulty seeing even when wearing glasses? Answer Date of Assessment Author No 06/09/2022 9:45 AM Darrell Harrington CCMA * Does this person have serious difficulty walking or climbing stairs? Answer Date of Assessment Author No 06/09/2022 9:45 AM Darrell Harrington CCMA * Does this person have difficulty dressing or bathing? Answer Date of Assessment Author No 06/09/2022 9:45 AM Darrell Harrington CCMA * Because of a physical, mental or emotional condition, does this person have difficulty doing errands alone such as visiting a doctor's office or shopping? Answer Date of Assessment Author No 06/09/2022 9:45 AM Darrell Harrington CCMA documented as of this encounter Mental Status * Because of a physical, mental or emotional condition, does this person have serious difficulty concentrating, remembering or making decisions? Answer Entry Date Author No 06/09/2022 9:45 AM Darrell Harrington CCMA documented in this encounter Progress Notes * Geeta George - 03/28/2025 1:23 PM EST Patient Outreach: Care Gap Outreach Attempt Count: 1st Care Gaps Addressed senior consultant: Mammogram Outcome:Left message to return call at and [employer]ud[employer] Message Sent Call back number: [phone] documented in this encounter Plan of Treatment Not on file documented as of this encounter Goals Goal Patient Goal Type Associated Problems Recent Progress Patient-Stated? Author Maintain a healthy diet, exercise regularly and maintain an ideal body weight General No Alecia Boone CCMA documented as of this encounter Visit Diagnoses Not on filedocumented in this encounter Care Teams Credit Checker Relationship Specialty Start Date End Date Crescencio Franco MD [address] [place] [address] [place] [address] PCP - General Internal Medicine 11/13/22 documented as of this encounter
--- OUTSIDE RECORDS SUMMARY | 2025-05-03 07:04 | XMS_ITS | Encounter Summary ---
Author Organization [place] [address] Care Team Providers Care Wound Treatment Rn Name Role Phone [facility] Primary Care Provider [phone] Ashwin Mayo MD Primary Care Provider [phone] [facility] Primary Care Provider [phone] Velia Ace APRN Primary Care Provider Crescencio Franco MD Primary Care Provider + [phone] Emily Demarco RN Unavailable Unavailable Encounter Details Date Type Department Care Team (Late st Contact Info) Description 07/10/2011 Orders Only SEP Gastro [facility] [address] [facility] [address] [place] [address] [place] [address] [facility] [address] [place] [address] Social History Tobacco Use Types Packs/Day Years Used Date Smoking Tobacco: Never Smokeless Tobacco: Never Alcohol Use Standard Drinks/Week Comments No 0 (1 standard drink = 0.6 oz pur e alcohol) Comments No Sex and Gender Information Value Date Recorded Sex Assigned at Not on file Legal Sex Female 3:21 PM EDT Gender Identity Not on file Sexual Orientation Not on file documented as of this encounter Plan of Treatment Not on file documented as of this encounter Procedures Procedure Name Priority Date/Time Associated Diagnosis Comments GMED COLONOSCOPY Routine 07/10/2011 12:0 0 AM EST documented in this encounter Results * GMED COLONOSCOPY (07/10/2011 12:00 AM EST) 07/10/2011 Impressions [facility] - 07/10/2011 7:40 AM EST Polyp in the cecum (injection, polypectomy, endoclip) Polyp in the proximal ascending colon (polypectomy) Stool in the whole colon Narrative [facility] - 07/10/2011 7:40 AM EST Performing Provider: Aly Eisenberg MD Referring Provider: Ashwin Mayo MD us Aly Eisenberg MD GI PROCEDURE ORDERABLES Felicity l Result [facility] [address] [place] [id number] documented in this encounter Visit Diagnoses Not on filedocumented in this encounter Additional Health Concerns Infection Onset Date Last Indicated Resolved Time R/O Influenza 06/18/2019 06/18/2019 06/18/2019 9:4 9 PM EST R/O COVID-19 11/07/2024 11/07/2024 11/07/2024 9:13 PM EDT documented as of this encounter Care Teams Wound Treatment Rn Relationship Specialty Start Date [facility] [address] [place] [id number] PCP - General Clinic/Center - [facility] ([facility]) 12/08/11 08/30/14 Ashwin Mayo MD [address] [place] [address] PCP - General Family Medicine 08/31/14 09/27/16 Eladia Grigsby [address] [place] [address] PCP - General Clinic/Center - [facility] ([facility]) 09/28/16 08/14/20 Velia Ace APRN [employer] [place] [address] PCP - General Nurse Practitioner-Family 08/15/20 11/12/22 Crescencio Franco MD [address] [place] [address] [place] [address] PCP - General Internal Medicine 11/13/22 Emily Demarco, RN Camp Attendant 03/14/24 03/19/24 documented as of this encounter
--- OUTSIDE RECORDS SUMMARY | 2025-05-03 07:04 | XMS_ITS | Clinical Summary ---
Author Organization [facility] Address [address] [place] [address] Phone Care Team Providers Care Injection Molder Name Role Phone Crescencio Franco MD Primary Care Provider [phone] Allergies Active Allergy Reactions Criticality Noted Date Comments Codeine Nausea And Vomiting Medium 12/15/2011 Hydroxyzine Other (See Comments) Low 12/09/2016 . Medications escitalopram oxalate (LEXAPRO) 10 mg Oral TabletIndication s:Mixed anxiety depressive disorder Take 1 Tablet by mouth daily. 90 Tablet 3 3 Active Cholecalciferol, Vitamin D3, (VITAMIN D3) 125 mcg (5,000 unit) Oral Tablet Take 1 Tablet by mouth daily. 90 Tablet 3 3 Active atorvastatin (LIPITOR) 20 mg Oral Tablet Take 1 Tablet by mouth daily. 90 Tablet 2 3 Active LINZESS 290 mcg Oral CapsuleIndicatio ns:Irritable bowel syndrome with constipation TAKE 1 CAPSULE BY MOUTH EVERY MORNING. TAKE AT LEAST 30 MIN PRIOR TO BREAKFAST. 90 Capsule 3 4 Active traZODone (DESYREL) 100 mg Oral TabletIndication s:Insomnia, persistent Take 1 Tablet by mouth nightly. Needs appt 30 Tablet 4 Active aspirin 81 mg Oral Tablet, Delayed Release (E.C.) Take 1 Tablet by mouth daily. 30 Tablet 5 4 Active Saccharomyces boulardii (FLORASTOR) 250 mg Oral Capsule Take 1 Capsule by mouth 2 times daily. 5 Capsule 4 Active psyllium (METAMUCIL SUGAR FREE) 3.4 gram Oral Powder in Packet Take 1 Packet by mouth 3 times daily (with meals). 90 Packet 1 4 Active ibuprofen (ADVIL;MOTRIN) 600 mg Oral Tablet Take 1 Tablet by mouth every 6 hours as needed for Pain. 100 Tablet 1 4 Active LEVOthyroxine (SYNTHROID) 75 mcg Oral Tablet Take 1 Tablet by mouth daily. 90 Tablet 5 4 Active lidocaine (ASPERCREME) 4 % Top Adhesive Patch, Medicated Place 1 Patch onto the skin daily. 30 Patch 1 4 Active Additional Information Patient not taking.Reported on 03/24/2024 pantoprazole (PROTONIX) 40 mg Oral Tablet, Delayed Release (E.C.)Indication s:Gastroesophage al reflux disease, unspecified whether esophagitis present,Encounte r for medication refill TAKE 1 TABLET BY MOUTH TWICE A DAY 60 Tablet 1 4 Active Active Problems Patient Care Coordination No te Formatting of this note migh t be different from the original. HCC audit completed by Emily Taylor RN on 02/01/2023. 05/20/2022 No Show Db MyChart and mailed letter AW 09/25/2021 No Show [place] Problem Noted Date Diagnosed Date Abnormal stress test 03/13/2024 Overview (03/24/2024): Patient had an abnormal stress test in the hospital but her symptoms were atypical she denied any typical symptoms coronary disease ECG and cardiac enzymes were normal. Assessment & Plan (03/24/2024 4:31 PM EDT): Reviewed stress test findings with patient I believe these were likely her stress test was a false positive exam. I would not recommend further ischemic workup at this time as she is asymptomatic. Would recommend continuation of aspirin and atorvastatin due to other risk factors but for now no further workup. Discussed with her today if she develops symptoms such as worsening shortness of breath or chest pains with exertion or other symptoms concerning for angina we could readdress. Obesity 03/12/2024 Acute cystitis 03/12/2024 Troponin I above reference range 03/12/2024 Shortness of breath 03/11/2024 [place] cardiac risk <10% in next 10 years Overview (06/10/2022): The 10-year ASCVD risk score (Juanita YAN, et al., 2019) is: 4.8% Values used to calculate the score: Age: 61 years Sex: Female Is Non- : No Diabetic: No Tobacco smoker: No Systolic Blood Pressure: 118 mmHg Is BP treated: No HDL Cholesterol: 29 mg/dL Total Cholesterol: 248 mg/dL Recommend statin. Fatty liver 06/09/2022 Overview (06/09/2022): Managed by GI Obesity, Class II, BMI 35-39.9 06/09/2022 Overview (06/09/2022): Diet/exercise History of colon polyps 08/19/2020 Prediabetes 08/16/2020 Overview (06/09/2022): Lab Results Component Value Date HGBA1C 5.7 (H) 08/15/2020 Diet control Dyslipidemia 08/16/2020 Overview (03/24/2024): Currently on atorvastatin 20 mg daily initiated in the hospital. Assessment & Plan (03/24/2024 4:29 PM EDT): Would continue statin therapy recheck lipids next year. CKD (chronic kidney disease) stage 3, GFR 30-59 ml/min 08/16/2020 Overview (06/09/2022): Preventing CKD Progression: 1.Tight control of BP, BS, Lipids, passive smoking etc 2.Avoid any NSAIDs 3.Avoid IV contrast (Oral contrast OK). 4.Careful selection of Abx, dose for current GFR. 5.DASH diet, along with limiting the protein intake. Recommended protein intake no more than 1 gm/kg/day. Na =2 gm per day. Limit Phosphorus and Purines in diet too. 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 Mixed anxiety depressive disorder 07/13/2018 Overview (08/15/2020): Stable on lexapro Gastroesophageal reflux disease 08/07/2015 Overview (08/15/2020): On ppi Hypothyroidism 12/16/2014 Overview (08/15/2020): On synthroid Clubfoot 09/24/2012 S/P hysterectomy 05/24/1987 Overview (09/10/2020): Has vaginal cuff Resolved Problems Problem Noted Date Diagnosed Date Resolved Date Body mass index (BMI)40.0-44.9, adult 07/13/2018 06/09/2022 Overview (08/15/2020): Diet/exercise. Right lower lobe pneumonia 10/03/2017 0 08/15/2020 Leukocytosis 12/17/2014 08/15/2020 Chronic diastolic HF (heart failure) 12/17/2014 03/24/2024 Dizziness 12/16/2014 08/15/2020 Exertional dyspnea 12/16/2014 Encounters Date Type Department Care Team Description 03/28/2025 Patient Outreach [facility] [address] [place] [address] Crescencio Franco MD Central Patient Navigator Outreach (MAMMO) 02/16/2025 Refill [facility] [address] [place] [address] Shreya Arora APRN Medication Refill from Last 3 Months Immunizations Immunization Administration Dates Next Due Influenza Patient Reported 03/02/2012,02/25/2010 Influenza Seasonal Injectable 03/02/2012, 010 Influenza Seasonal Injectable PF 03/12/2024,02/21 Influenza Vaccine Quadrivalent PF 2022,10/03/2017,07/13/2017,2015 Influenza Vaccine, Unspecifi ed Formulation 07/14/2011 Td (adult), preservative free 07/31/2014 Td, Unspecified Formulation 07/31/2014 Zoster Recombinant 08/15/2020 Surgical History Surgery Date Site/Laterality Comments NARAYAN AND BSO TONSILLECTOMY CLEFT PALATE REPAIR FOOT SURGERY left , congenital defect repair TYMPANOSTOMY TUBE PLACEMENT COLONOSCOPY 06/24/2011 - 07/22/2011 polyps UPPER GASTROINTESTINAL ENDOSCOPY 09/06/2015 N/A ESOPHAGOGASTRODUODENOSCOPY WITH BIOPSY AND LOPEZ DILATION and COLONOSCOPY with forcep polypectomy; Surgeon: Aly Eisenberg MD; Location: [facility]; Service: Endoscopy COLONOSCOPY 09/06/2015 N/A Surgeon: Aly Eisenberg MD; Location: [facility]; Service: Endoscopy CHOLECYSTECTOMY, LAPAROSCOPIC 12/05/2015 Abdomen/N/A LAPAROSCOPIC CHOLECYSTECTOMY ; Surgeon: Stalin Dave MD; Location: [facility]; Service: General URETEROSCOPY 04/03/2016 Right CYSTOSCOPY, URETHRAL DILATION, RIGHT URETERAL DILATION, RIGHT URETEROSCOPY, RIGHT RETROGRADE, RIGHT STENT INSERTION; Surgeon: Juan Ramon Rosales MD; Location: [facility]; Service: Urology Medical devices from this surgery are in the Medical Devices section. CYSTOSCOPY 04/03/2016 Surgeon: Juan Ramon Rosales MD; Location: [facility]; Service: Urology Medical devices from this surgery are in the Medical Devices section. CYSTOSCOPY 04/03/2016 Surgeon: Juan Ramon Rosales MD; Location: [facility]; Service: Urology Medical devices from this surgery are in the Medical Devices section. CYSTOSCOPY 04/03/2016 Surgeon: Juan Ramon Rosales MD; Location: [facility]; Service: Urology Medical devices from this surgery are in the Medical Devices section. URETEROSCOPY 04/21/2016 Right CYSTOSCOPY, RIGHT STENT REMOVED, RIGHT URETEROSCOPY, RIGHT RETROGRADE; Surgeon: Clarence Cortés MD; Location: [facility]; Service: Urology Medical devices from this surgery are in the Medical Devices section. CYSTOSCOPY 04/21/2016 Surgeon: Clarence Cortés MD; Location: [facility]; Service: Urology Medical devices from this surgery are in the Medical Devices section. CYSTOSCOPY 04/21/2016 Surgeon: Clarence Cortés MD; Location: [facility]; Service: Urology Medical devices from this surgery are in the Medical Devices section. Medical History Medical History Date Comments GERD (gastroesophageal reflux disease) Thyroid disease Arthritis knees Anemia Depression Motion sickness Back pain Heart murmur Headache Bladder problem frequency Chronic kidney disease stones Colon polyp Chronic constipation Family History Medical History Relation Name Comments Diabetes Brother 1 Substance Abuse Brother 4 Substance Abuse Brother 5 Colon Polyps Father Stroke Father Cleft Palate Mother Colon Polyps Mother Diabetes Mother Lung Cancer Mother smoker Celiac Disease Neg Hx Hemochromatosis Neg Hx Irritable Bowel Syndrome Neg Hx Liver Disease Neg Hx Relation Name Status Comments Brother 1 Alive Brother 2 Alive Brother 3 Alive Brother 4 Brother 5 Father Mother Sister 1 Alive Sister 2 Alive Social History Tobacco Use Types Packs/Day Years Used Date Smoking Tobacco: Never Smokeless Tobacco: Never Tobacco Cessation:Counseling Given: Not Answered Alcohol Use Standard Drinks/Week Comments No 0 (1 standard drink = 0.6 oz pur e alcohol) none [facility] Utilities Answer Date Recorded In the past 12 months has e electric, gas, oil, or water company threatened to shut off services in your home? No 03/12/2024 Overall Financial Resource Strain (CARDIA) Answe r Date Recorded How hard is it for you to pa y for the very basics like food, housing, medical care, and heating? Not very hard 03/12/2024 PHQ-2 Answer Date Recorded PHQ-2 Total Score 0 03/12/2024 [facility] [place] of Occupat ional Health - Occupational Stress [...] things needed for daily living? Yes 09/26/2020 [facility] IP Transportation Answer D ate Recorded In [...] on file Sexual Orientation Not on file Last Filed Vital Signs Vital Sign Reading Time Taken Comments Blood Pressure 130/67 11/07/2024 8:22 PM EDT Pulse 86 11/07/2024 10:05 PM EDT Temperature 37.6 C (99.6 F) 11/07/2024 8:25 PM EDT Respiratory Rate 19 11/07/2024 10:05 PM EDT Oxygen Saturation 100% 11/07/2024 10:01 PM EDT Inhaled Oxygen Concentration - - Weight 90.7 kg (200 lb) 11/07/2024 8:20 PM EDT Height 154.9 cm (5' 1 ) 11/07/2024 8:20 PM EDT Body Mass Index 37.79 11/07/2024 8:20 PM EDT Plan of Treatment Health Maintenance Due Date Last Done Comments Pneumococcal Vaccine 50+ (1 of 2 - PCV) 1981 Cologuard 2007 FIT 2007 Sigmoidoscopy 2007 Virtual Colonography 2007 RSV or 60+ (1 - Risk 50-74 years 1-dose series) 2012 DTaP/TDaP/Td (1 - Tdap) 08/01/2014 07/31/2014, 07/31 Breast Cancer Screening 10/13/2018 10/13/2016 Zoster (2 of 2) 10/10/2020 08/15/2020 Annual Wellness Exam 06/09/2023 06/09/2022 COVID-19 Vaccine (1 - season) 2025 Influenza Vaccine (#1) 2025 , 06/09/2022, 10/03/2017, Additional history exists Colon Cancer Screening 10/19/2027 Colonoscopy 10/19/2027 10/20/2022, 02/0 11/2021, 01/01/2021, Additional history exists Hepatitis C Screening Completed 08/15/2020 Hepatitis B Vaccine Aged Out No longe r eligible based on patient's age to complete this topic Meningococcal B Vaccine Aged Out No l onger eligible based on patient's age to complete this topic Goals Goal Patient Goal Type Associated Problems Recent Progress Patient-Stated? Author Maintain a healthy diet, exercise regularly and maintain an ideal body weight General No Alecia Boone CCMA Medical Devices Explanted Type Area Carton Stenciler Device Identifier Shelf Expiration Date Model / Serial / Lot Stent Contour 6 X 24 #[id number] - [id number] Implanted:Qty: 1 on 04/03/2016 by Juan Ramon Rosales MD at [facility] Explanted:Qty: 1 on 04/21/2016 by Clarence Cortés MD at [facility] Stent [employer]OST[employer] SCI:MICROVASIVE:UR OLOGY 12/25/2018 180-222 / / [id number] Procedures Procedure Name Priority Date/Time Associated Diagnosis Comments COLONOSCOPY Routine 10/20/2022 8:12 AM EDT History of colon polyps HCV ANTIBODY SCREEN W/ REFLEX Routine 08/15/2020 9:57 AM EDT Need for hepatitis C screening test MM MOBILE MAMMO DIGITAL SCREEN W CAD KIMBERLY Routine 10/13/2016 11:00 AM EDT Encounter for screening mammogram for malignant neoplasm of breast from Last 3 Months or Most Recently Relevant to Health Maintenance Results * COLONOSCOPY (10/20/2022 8:12 AM EDT) Anatomical Region Laterality Modality Endoscopy Narrative 10/20/2022 8:15 AM EDT Table formatting from the original result was not included. Findings One 4 mm sessile polyp in the ascending colon; completely removed en bloc by cold snare and retrieved specimen One 7 mm sessile polyp in the sigmoid colon; completely removed en bloc by cold snare and retrieved specimen Recommendation Await pathology results Repeat colonoscopy in 5 years Indication History of colon polyps Staff Staff Role JO ANN Chavarria CRNA, RN Snapper On Breann Dutta MD Anesthesiologist Scot Garcia MD Performing Provider Medications See Anesthesia Record. Preprocedure A history and physical has been performed, and patient medication allergies have been reviewed. The patient's tolerance of previous anesthesia has been reviewed. The risks and benefits of the procedure and the sedation options and risks were discussed with the patient. All questions were answered and informed consent obtained. ASA 2 - Patient with mild systemic disease Details of the Procedure The patient underwent monitored anesthesia care, which was administered by an anesthesia professional. The patient's blood pressure, heart rate, level of consciousness, oxygen, respirations, ECG and ETCO2 were monitored throughout the procedure. A digital rectal exam was performed. The scope was introduced through the anus and advanced to the cecum. Retroflexion was performed in the rectum. The quality of bowel preparation was evaluated using the Albert Bowel Preparation Scale with scores of: right colon = 3, transverse colon = 3, left colon = 3. The total BBPS score was 9. Bowel prep was adequate. The patient experienced no blood loss. The procedure was not difficult. The patient tolerated the procedure well. There were no apparent adverse events. Patient provided education and educated on specific discharge instructions. Patient educated on medications given during the procedure and new medications for discharge. Patient verbalizes understanding of discharge education. Patient stable and awaiting transport for discharge. Events Procedure Events Event Event Time ENDO SCOPE IN TIME 10/20/2022 7:56 AM ENDO CECUM REACHED 10/20/2022 8:02 AM ENDO SCOPE OUT TIME 10/20/2022 8:09 AM Specimens ID Type Source Tests Collected by Time 1 : ascending colon polyp via cold snare Tissue Large Intestine, Right/Ascending Colon PATHOLOGY TISSUE REQUEST Aurea Gongora RN 10/20/2022 0804 2 : sigmoid colon polyp via cold snare Tissue Large Intestine, Sigmoid Colon PATHOLOGY TISSUE REQUEST Aurea Gongora RN 10/20/2022 0808 Scot Garcia MD ENDOSCOPY PROCEDURE ORDERA BLES Final Result * HEPATITIS C ANTIBODY - SCREENING (08/15/2020 9:57 AM EDT) Hep C Ab Non-Reactiv e Non-Reacti ve 08/15/2020 7:43 PM EDT [employer] Blood VENOUS BLOOD / Unknown Venipuncture / Unknown 08/15/2020 9:57 AM EDT 08/15/2020 10:03 AM EDT Velia Ace ER REGISTRAR HEMATOLOGY ORDERABLES Final Result [employer] [address] [place] [address] , [place] [address] * MM MOBILE MAMMO DIGITAL SCREEN W CAD KIMBERLY (10/13/2016 11:00 AM EDT) Anatomical Region Laterality Modality Breast Mammography 10/14/2016 9:38 AM EDT Impressions 10/14/2016 4:40 PM EDT : Negative ([id number]) ~ RECOMMENDATION: Routine screening mammogram in 1 year. ~ DISCLAIMER * The patient with a palpable abnormality, unexplained by breast imaging, should be managed on clinical basis by the attending physician. * Breast imaging has a false negative rate of 15%. * The patient was notified by mail of the results of this examination. *The patient's information was entered into a reminder system with a target due date for the next mammogram. The mammogram was reviewed by a Radiologist and CAD. Narrative 10/14/2016 4:40 PM EDT Procedure:MM MOBILE MAMMO DIGITAL SCREEN W CAD KIMBERLY ~ Reason for exam: screening, asymptomatic. ~ MM MOBILE MAMMO DIGITAL SCREEN W CAD KIMBERLY Bilateral CC and MLO view(s) were taken. No prior studies available for comparison. The breast tissue is almost entirely fat. No suspicious calcifications. ~ Ashwin Mayo MD IMG MAMMOGRAPHY ORDERABLES Final Result from Last 3 Months or Most Recently Relevant to Health Maintenance [facility] [place] [id number] [place] [address] [place] [facility] [place] [id number] MDR Advance Directives For more information, please contact: [phone] * Full Code (Latest Code Status on File) Date Activated Date Inactivated Comments 03/11/2024 10:01 PM 03/13/2024 10:33 PM * Full Code Date Activated Date Inactivated Comments 10/03/2017 5:17 PM 10/04/2017 7:04 PM * Full Code Date Activated Date Inactivated Comments 12/17/2014 8:27 AM 12/17/2014 6:22 PM Care Teams Injection Molder Relationship Specialty Start Date End Date Crescencio Franco MD [address] [place] [address] [place] [address] PCP - General Internal Medicine 11/13/22
--- OUTSIDE RECORDS SUMMARY | 2025-05-03 07:04 | XMS_ITS | Encounter Summary ---
Author Organization [place] [address] Care Team Providers Care Plant Technician/Control Room Operator Name Role Phone [facility] Primary Care Provider [phone] Ashwin Mayo MD Primary Care Provider [phone] [facility] Primary Care Provider [phone] Velia Ace APRN Primary Care Provider [phone] Crescencio Franco MD Primary Care Provider [phone] Emily Demarco RN Unavailable Unavailable Encounter Details Date Type Department Care Team (Late st Contact Info) Description 06/03/2011 Orders Only SEP Gastro [facility] [address] [facility] [address] [place] [address] [place] [id number] [facility] [address] [place] [address] Social History Tobacco Use Types [...] Date/Time Associated Diagnosis Comments [facility] COLONOSCOPY Routine 06/03/2011 12:0 0 AM EST documented in this encounter Results * [facility] COLONOSCOPY (06/03/2011 12:00 AM EST) 06/03/2011 Impressions [facility] - 06/03/2011 10:00 AM EST Stool in the rectum Narrative [facility] - 06/03/2011 10:00 AM EST Performing Provider: Aly Eisenberg MD Referring Provider: Ashwin Mayo MD us Aly Eisenberg MD GI PROCEDURE ORDERABLES Felicity l Result [facility] [address] [place], [place] [id number] documented in this encounter Visit Diagnoses Not on filedocumented in this encounter Additional Health Concerns Infection Onset Date Last Indicated Resolved Time R/O Influenza 06/18/2019 06/18/2019 06/18/2019 9:4 9 PM EST R/O COVID-19 11/07/2024 11/07/2024 11/07/2024 9:13 PM EDT documented as of this encounter Care Teams Plant Technician/Control Room Operator Relationship Specialty Start Date End Date Seb Griffin [address] [place] [address] PCP - General Clinic/Center - [facility] ([facility]) 12/08/11 08/30/14 [place] [address] [place] [id number] PCP - General Family Medicine 08/31/14 09/27/16 [place] [address] [place] [phone] PCP - General Clinic/Center - [facility] ([facility]) 09/28/16 08/14/20 Velia Ace APRN [employer] [place] [address] PCP - General Nurse Practitioner-Family 08/15/20 11/12/22 Crescencio Franco MD [facility] [employer] [place] [address] PCP - General Internal Medicine 11/13/22 Emily Demarco, RN Manager Bakery 03/14/24 03/19/24 documented as of this encounter
--- OUTSIDE RECORDS SUMMARY | 2025-05-03 07:04 | XMS_ITS | Encounter Summary ---
Author Organization [place] [address] Care Team Providers Care Assistant County Attorney Name Role Phone Velia Ace APRN Primary Care Provider [phone] Crescencio Franco MD Primary Care Provider [phone] Emiyl Demarco RN Unavailable Unavailable Encounter Details Date Type Department Care Team (Late st Contact Info) Description 09/18/2020 Orders Only SEP G[facility] [address] [facility] [address] [place] [address] Scot Mejia MD [address] [place] [address] Social History Tobacco Use Types Packs/Day Years [...] 08/15/2020 9:08 AM EDDarrell Casillas CCMA * Does this person have difficulty dressing or bathing? Answer Date of Assessment Author No 08/15/2020 9:08 AM EDDarrell Casillas CCMA * Because of a physical, mental [...] Date/Time Associated Diagnosis Comments [facility] EGD-COLONOSCOPY Routine 09/18/2020 10:00 AM EDT documented in this encounter Results * [facility] EGD-COLONOSCOPY (09/18/2020 10:00 AM EDT) 09/18/2020 10:0 0 AM EDT Impressions [facility] - 09/18/2020 10:32 AM EDT Plan: Await pathology results High dose PPI bid. Follow-up office visit in 2 months Colonoscopy at next available appointment (incomplete - repeat due to poor prep) This section is an excerpt of the full report. us Scot Garcia MD GI PROCEDURE ORDERABLES Fi nal Result [facility] [address] [place] [address] documented in this encounter Visit Diagnoses Not on filedocumented in this encounter Additional Health Concerns Infection Onset Date Last Indicated Resolved Time R/O COVID-19 11/07/2024 11/07/2024 11/07/2024 9:13 PM EDT documented as of this encounter Care Teams Assistant County Attorney Relationship Specialty Start Date End Date Velia Ace APRN [address] [place] [address] PCP - General Nurse Practitioner-Family 08/15/20 11/12/22 Crescencio Franco MD [facility] [place] [address] PCP - General Internal Medicine 11/13/22 Emily Demarco, RN Aviation Electrical Technician 03/14/24 03/19/24 documented as of this encounter
--- NOTE | 2025-05-03 07:18 | ED_ITS ---
Discharge Plan Disposition Patient Disposition: Home, Self-Care Prescriptions Prescriptions: No Action ondansetron 4 MG tablet,disintegrating 4 mg PO TIDP PRN (Reason: Nausea And Vomiting) Qty: 10 0RF sulfamethoxazole-trimethoprim [Bactrim] 400-80 mg tablet 1 tab PO BID 7 Days Qty: 14 0RF ibuprofen 400 MG tablet 400 mg PO Q8HP PRN (Reason: Mild Pain) 5 Days Qty: 15 0RF hydroxyzine pamoate 25 MG capsule 25 mg PO Q8H PRN (Reason: Itching) 5 Days Qty: 15 0RF Referrals Follow up/Referrals: Provider,Referral, MD [Primary Care Provider, Medical] - See instructions Activity Restrictions/Add. Instructions Additional Instructions/Restrictions: You likely have neuropathy in both feet. I encourage you to follow-up with your primary care doctor for further management. You can take Tylenol and ibuprofen to help with your pain. If you develop any new or worsening symptoms, or if you become concerned for your help for any reason, return to the emergency department for evaluation Clinical Impressions Clinical Impression: Bilateral foot pain Print Language Print Language: Chadian Discharge ED Provider: Oskar Escalona Adult HPI General Chief complaint: PAIN Stated complaint: Feet pain Time Seen by Provider: 05/03/25 07:10 Mode of Arrival: EMS Source of Information: Patient and EMS Description of Symptoms (Recalled from ER Triage Doc. by RN): PT brought to the ED via [facility]. PT has c/o pain and numbness in bilateral feet and bilateral lower legs. Stated symptoms came on abruptly 4 days ago. Denies diabetes. PT L foot is clubbed. PT noted to has feces on soles of both shoes, stated she stepped in feces a few days ago. PT has strong foul smell to person. History of Present Illness HPI narrative: Althea Villatoro is a history of hypothyroidism, cleft palate s/p repair, clubfoot who presents to the emergency department for 4 days of tingling pain to the bottom of both feet and right leg. Patient states that this started 4 days ago and is painful to walk with her walker. She states that her son squeezed her feet over the last few days and it was painful. She states that she has been taking Tylenol without relief. She denies any trauma. She denies any weakness. She denies any urinary incontinence or retention, weakness, fecal incontinence. She denies any abdominal pain or back pain. She does report some mild nausea but has not been vomiting. Related Data Previous Rx's ?Medication ?Instructions ?Recorded ondansetron 4 mg disintegrating 4 mg PO TIDP PRN Nause a And 02/06/20 tablet Vomiting ##10 hydroxyzine pamoate 25 mg capsule 25 mg PO Q8H PRN Itc radha 5 days 01/03/21 #15 caps ibuprofen 400 mg tablet 400 mg PO Q8HP PRN Mild Pain 5 01/03/21 days #15 tabs sulfamethoxazole 400 1 tab PO BID 7 days #14 tabs 04/08/25 mg-trimethoprim 80 mg tablet (Bactrim) Allergies Allergy/AdvReac Type Severity Reaction Status Date / Time codeine Allergy Unknown Verified 04/08/25 08:16 allergy reaction [facility] Disclaimer: The information contained in this section may have been updated after the patient was seen, as this information can be updated by other users. Social History Smoking Status: Never smoker alcohol intake: never current occupational status: disabled Travel in the last 8 weeks?: None Have you lived/traveled outside [place] in past 30 days?: No Contact w/someone who lives/traveled outside [place] past 30 days?: No Exposure to someone with infectious disease in past 14 days?: No Do you have a fever (greater than 100.4 F or 38 C)?: No Have you tested positive for COVID-19?: No Exposed to someone with COVID-19 in past 14 days?: No Do you have a sore throat?: No Do you have a cough?: No Do you have any weakness?: No Do you have any diarrhea?: No Are you experiencing any unusual bleeding?: No Do you have any muscle aches/pain?: No Do you have any abdominal pain?: No Are you experiencing loss of taste or smell?: No Other Medical History Have you received the Flu Vaccine for this season: No Have you received the Pneumonia Vaccine: No ROS Obtained: Yes Systems reviewed as appropriate & no additional complaints except as documented Physical Exam General General appearance: alert and in no apparent distress Head Head exam: atraumatic Eye Eye exam: Present normal appearance ENT ENT exam: Present normal external ear exam Neck Neck exam: Present full ROM Chest Chest inspection: Present symmetric chest wall rise Respiratory Respiratory exam: Present normal lung sounds bilaterally; Absent respiratory distress Cardiovascular Cardiovascular exam: Present regular rate and normal rhythm Abdominal Exam Abdominal exam: Present soft; Absent tenderness or guarding Extremities Exam Extremities exam: Present normal inspection and other (2+ DP and PT pulses bilaterally. Normal color to distal bilateral lower extremities. No edema. Generalized tenderness throughout majority of both feet without focal tenderness.) Back Exam Back exam: Present normal inspection Neurological Exam Neurological exam: Present alert and oriented X3 Psychiatric Psychiatric exam: Present normal affect Skin Skin exam: Present warm and dry Medical Decision Making Medical Records Screening: Per USPSTF and CDC recommendations, given the prevalence of disease in our region, it is our hospital?s policy to screen for HIV and viral Hepatitis for all patients aged 18 and over and those with ongoing risk factors. Jeffery Inquiry Pt receiving controlled substance: No Vital Signs: 05/03/25 06:49 05/03/25 06:56 05/03/25 08:26 Temperature 97.6 F Temperature Source Oral Pulse Rate 98 H 104 H Pulse Rate [Right] 98 H Respiratory Rate 18 18 Blood Pressure 148/87 H 131/70 Blood Pressure [Right Arm] 148/87 H Blood Pressure Mean [Right Arm] 107 02 Sat by Pulse Oximetry 98 96 96 Oxygen Delivery Method Room Air Room Air Room Air 05/03/25 08:30 05/03/25 09:01 05/03/25 09:30 Temperature Temperature Source Pulse Rate 90 90 85 Pulse Rate [Right] Respiratory Rate Blood Pressure 114/53 L 118/47 L 114/56 L Blood Pressure [Right Arm] Blood Pressure Mean [Right Arm] 02 Sat by Pulse Oximetry 98 98 97 Oxygen Delivery Method Room Air 05/03/25 10:00 05/03/25 10:29 Temperature 98.0 F Temperature Source Pulse Rate 81 86 Pulse Rate [Right] Respiratory Rate 16 Blood Pressure 98/44 L 114/56 L Blood Pressure [Right Arm] Blood Pressure Mean [Right Arm] 02 Sat by Pulse Oximetry 96 Oxygen Delivery Method Room Air Lab Data Lab Results 05/03/25 07:26: WBC 8.8, RBC 4.14 L, Hgb 13.2, Hct 39.7, MCV 95.9, MCH 31.9 H, MCHC 33.2, RDW 12.6, Plt Count 235, MPV 10.9 H, Neut % (Auto) 58.2, Lymph % (Auto) 32.4, [place] % (Auto) 5.8, Eos % (Auto) 2.4, Baso % (Auto) 0.9, Neut # (Auto) 5.1, Lymph # (Auto) 2.9, [place] # (Auto) 0.5, Eos # (Auto) 0.2, Baso # (Auto) 0.1, Sodium 141, Potassium 4.8, Chloride 102, Carbon Dioxide 27, Anion Gap 16.8 H, BUN 14, Creatinine 0.90, Estimated Creat Clear 84, Estimated GFR 63, Est GFR ( Amer) 77, Glucose 107 H, Calcium 8.9, Phosphorus 3.9, Magnesium 2.1, Total Bilirubin 0.9, AST 36, ALT 20, Alkaline Phosphatase 37 L, Total Protein 8.4 H, Albumin 4.6, Globulin 3.8 H, Albumin/Globulin Ratio 1.2, TSH 0.52, Free T4 1.30, HCV Ab NICOLE w/Rflx PCR Qn Negative, HIV Ag/Ab Combo Qual Negative 05/03/25 08:25: Urine Color Yellow, Urine Appearance Slightly cloudy, Urine pH 5.5, Ur Specific [place] >= 1.030, Urine Protein Trace, Urine Glucose (UA) Negative, Urine Ketones Negative, Urine Blood Negative, Urine Nitrate Negative, Urine Bilirubin 1+ A, Urine Urobilinogen 1.0, Ur Leukocyte Esterase Trace, Urine RBC Occasional, Urine WBC 5-10, Ur Squamous Epith Cells 5-10, Amorphous Sediment 1+, Urine Bacteria 2+ 05/03/25 07:26 05/03/25 07:26 Orders (Tests/Meds): ED MEDICATIONS Discontinued Medications Generic Name Dose Route Start Last Admin Trade Name Jordy PRN Reason Stop Dose Admin Ibuprofen 600 mg 05/03/25 07:17 05/03/25 07:24 Ibuprofen 600 Mg Tablet PO 05/03/25 07:18 600 mg ONCE ONE Administration Ondansetron HCl 4 mg 05/03/25 07:45 05/03/25 07:49 Ondansetron 4mg Odt SL 05/03/25 07:46 4 mg ONCE ONE Administration ORDERS Category Date Time Status CBC w/Auto Diff [Complete Blood Count Auto Diff] Stat Lab 05/03/25 07:26 Completed CMP [Comprehensive Metabolic Panel] Stat Lab 05/03/25 07:26 Completed Free T4 (Free Thyroxine) Stat Lab 05/03/25 07:26 Completed HIV Combo Stat Lab 05/03/25 07:26 Completed Hepatitis C Ab Qual. W/ RFX Stat Lab 05/03/25 07:26 Completed Magnesium Stat Lab 05/03/25 07:26 Completed Phosphorous Stat Lab 05/03/25 07:26 Completed TSH [Thyroid Stimulating Hormone] Stat Lab 05/03/25 07:26 Completed UA [Urinalysis and Microscopic] Stat Lab 05/03/25 08:25 Completed Urine Culture Stat Micro 05/03/25 08:25 Received Medical Decision Narrative: Althea Villatoro is a history of hypothyroidism, cleft palate s/p repair, clubfoot who presents to the emergency department for 4 days of tingling pain to the bottom of both feet and right leg. Patient states that this started 4 days ago and is painful to walk with her walker. She states that her son squeezed her feet over the last few days and it was painful. She states that she has been taking Tylenol without relief. She denies any trauma. She denies any weakness. She denies any urinary incontinence or retention, weakness, fecal incontinence. She denies any abdominal pain or back pain. She does report some mild nausea but has not been vomiting. On arrival, patient is hemodynamically stable, in no acute distress, afebrile, breathing comfortably on room air with appropriate oxygen saturation. Physical exam, stated above, revealed overall well-appearing female in no distress. She is alert and oriented and answering questions appropriately. She has 2+ DP and PT pulses the distal bilateral lower extremities. No focal weakness in both extremities. Normal color to distal bilateral lower extremities. Patient's left foot does appear chronically deformed likely from her clubfoot. Sensation is grossly intact. She has tenderness diffusely throughout both bilateral distal lower extremities without focal tenderness. Differential diagnosis includes, but is not limited to: Peripheral neuropathy, electrolyte derangement, bruising, hypothyroidism, low concern for stroke etiology as patient has no focal neurological deficits. Patient has strong distal pulses in her lower extremities and I have low concern for peripheral arterial disease at this time. Will obtain hematologic labs. Patient is requesting Pepsi and something to eat at this time. Will administer p.o. Zofran as well. Patient's laboratory studies are grossly unremarkable nonactionable. No leukocytosis, no anemia, electrolytes within normal limits. Mildly elevated anion gap of 16.8. No RL. Phosphorus normal at 3.9, magnesium normal at 2.1 liver enzymes and bilirubin within normal limits. Thyroid studies within normal limits. Urinalysis shows 1+ bilirubin but nitrate negative and trace leukocyte esterase. occasional urinary RBCs and 5-10 white blood cells. Patient is not having any urinary symptoms at this time and I feel like this does not represent a urinary tract infection. On reassessment, patient lucinda stable condition has tolerated oral intake without difficulty. She is ambulated in the emergency department without difficulty. I do feel that she likely has a component of peripheral neuropathy, which could be secondary to her clubfeet. Will give patient a list of primary care doctors for her to follow-up with. Return precautions were given. All questions were answered. She demonstrated understanding and was in agreement with this plan. She was then discharged from the emergency department in stable condition. Critical Care Critical Care Time Critical Care Time: No
[2025-05-03] MEDS: IBUPROFEN 600 MG TABLET PO (07:24)
--- NOTE | 2025-05-03 07:27 | PC.NURSE ---
attempted to stick pt for IV, was able to obtain blood but unsuccessful after two attempts. notified MD. he states ok to give PO zofran, wait for labs to come back and reassess IV access.
--- NOTE | 2025-05-03 07:30 | PC.NURSE ---
call for breakfast tray for pt per MD request. pt also provided pepsi with another warm blanket. pt states she is very chilly.
[2025-05-03] MEDS: ONDANSETRON 4MG ODT 4 MG SL (07:49)
[2025-05-03 07:54] LABS: Hematocrit 39.7 % (37.0-47.0); Hemoglobin 13.2 g/dL (12.2-16.2); Immature Granulocytes % 0.3 %; Mean Corpuscular HGB Conc 33.2 g/dL (31.8-35.4); Mean Corpuscular Hemoglobin 31.9 pg (27.0-31.2); Mean Corpuscular Volume 95.9 fl (81-99); Nucleated Red Blood Cells % 0 %; Platelet Count 235 K/mm3 (142-424); Red Blood Count 4.14 M/mm3 (4.20-5.40); Red Cell Distribution Width-SD 44.4 fL; White Blood Count 8.8 K/mm3 (4.8-10.8)
[2025-05-03 08:02] LABS: Albumin Level 4.6 g/dl (3.5-5.0); Chloride 102 mmol/L (98-107); Potassium 4.8 mmoL/L (3.5-5.1); Sodium 141 mmol/L (136-145)
[2025-05-03 08:04] LABS: Alanine Aminotransferase 20 U/L (12-78); Aspartate Amino Transferase 36 U/L (14-36); Blood Urea Nitrogen 14 mg/dl (7-17); Creatinine Clearance Estimated 84 mL/min (50-200); Creatinine,Serum 0.90 mg/dl (0.52-1.04); Estimated Glomerular Filt Rate 63 ml/min (>60); GFR (African American) 77 ML/MIN (>60)
[2025-05-03 08:05] LABS: Albumin/Globulin Ratio 1.2 (1.1-1.8); Alkaline Phosphatase 37 U/L (38-126); Anion Gap 16.8 mEq/L (5-15); Bilirubin,Total 0.9 mg/dl (0.2-1.3); Calcium 8.9 mg/dl (8.4-10.2); Carbon Dioxide 27 mmol/L (22.0-30.0); Globulin 3.8 g/dL (1.3-3.2); Glucose 107 mg/dl (74-100); Magnesium 2.1 mg/dl (1.6-2.3); Phosphorous 3.9 mg/dl (2.5-4.5); Total Protein,Serum 8.4 g/dl (6.3-8.2)
[2025-05-03 08:30] LABS: Microscopic, Urine URINE MICROSCOPIC (MICROSCOPIC)
[2025-05-03 08:31] LABS: Color,Urine YELLOW (Yellow); Glucose,Urine (UA) Negative (Negative); Ketones,Urine Negative (Negative); Leukocyte Esterase,Urine TRACE (Negative); PH,Urine 5.5 (5.0-8.5); Protein,Urine TRACE (Negative); Specific Gravity, Urine >= 1.030 (1.005-1.030); Urobilinogen,Urine 1.0 EU/dl (0.2)
[2025-05-03 08:36] LABS: Thyroid Stimulating Hormone 0.52 uIU/mL (0.465-4.68)
[2025-05-03 08:47] LABS: Bilirubin,Urine 1+ (Negative)
[2025-05-03 08:49] LABS: RBC,Urine Occasional #/hpf (0-3)
[2025-05-03 08:50] LABS: Amorphous Sediment,Urine 1+ /lpf; Bacteria,Urine 2+ /lpf
--- NOTE | 2025-05-03 09:05 | PC.NURSE ---
attempted to call pts son at her request. unavailable message when calling number listed on chart.
[2025-05-03 09:18] LABS: Free T4 (Free Thyroxine) 1.30 ng/dl (0.78-2.19)
[2025-05-03 09:49] LABS: Hepatitis C Ab Qual. W/ RFX NEGATIVE (Negative)
--- NOTE | 2025-05-03 10:12 | PC.NURSE ---
call made to care management to help assist with care a van home for pt
== END 2025-05-03 10:30 | disposition home or self-care (01) ==
PROVIDERS: Student in an Organized Health Care Education/Training Program; Emergency Provider Emergency Medicine
DX: M79.671 Pain in right foot (principal); M79.672 Pain in left foot; R11.0 Nausea; E03.9 Hypothyroidism, unspecified
CPT/HCPCS: 80053; 81001; 83735; 84100; 84439; 84443; 85025; 86803; 87086; 87389; 99283; 99284; Q0162